=== PATIENT | male | born 1985 | race Caucasian/White ===

== ENCOUNTER 2016-10-27 17:47 | Inpatient (IN) | payer OTHER ==
[~2016-10-27] VITALS: Ht 180.3 cm; Wt 113.4 kg
[~2016-10-27 17:47] MED LIST: ABILIFY10 M1 PO; ABILIFY20 M1 PO; AMBIEN (MONOGRAP5 MG PO; ATIVAN0.5 M1 PO; ATIVAN0.5 MG PO; ATIVAN1 MG PO; BENTYL20 MG PO; BUPROPION HYDR150 M1 PO; CARDIZEM 30 MG30 MG PO; CLONAZEPAM1 M2 PO; CLONAZEPAM1 MG PO; CLONIDINE HCL0.1 MG PO; CYCLOBENZAPRINE10 MG PO; ESCITALOPRAM OX20 MG PO; ESCITALOPRAM20 MG PO; FLOVENT HF0.044 MG/A INH; FOLIC ACID 1 MG PO; FOLIC ACID1 M1 PO; GABAPENTIN TAB600 MG PO; GABAPENTIN300 M2 PO; HYDRODIURIL 2525 MG PO; IBU-200200 MG PO; IBUPROFEN800 MG PO; LEVAQUIN500 MG PO; LEVSIN/SL0.125 MG SL; LEXAPRO 10MG10 MG PO; LEXAPRO10 M1 PO; LEXAPRO5 MG PO; LOMOTIL 0.025 M1 TAB PO; MOTRIN 400 MG400 MG PO; MULTIPLE VITAMI1 TA9 PO; MULTIVITAMIN1 TAB PO; NEURONTIN300 MG PO; NICOTINE PO; NORVASC 5MG TAB5 MG PO; ONE DAILY MULT1 EAC2 PO; OXYCODONE5 M1 PO; PEPCID20 MG PO; PERCOCET 325 MG1 TA2 PO; PRAZOSIN HCL1 M1 PO; PREDNISONE20 M1 PO; PRILOSEC 20MG C20 MG PO; PRILOSEC OTC20 MG PO; PROAIR HFA0.09 MG/Ac IN; PROAIR HFA0.09 MG/Ac INH; PROAIR HFA0.09 MG/Ac INH/SOL; PROPRANOLOL HCL10 M1 PO; PROTONIX 40MG T40 MG PO; ROXICODONE5 MG PO; ROZEREM8 MG PO; SEROQUEL (MONO200 MG PO; SPIRIVA 18 MCG18 MCG INH; SYMBICORT 160/41 PUF INH; TRAMADOL50 MG PO; TRAZODONE HCL50 M1 PO; TYLENOL500 MG PO; Theragran Vitamins PO; VITAMIN B-1100 MG PO; VITAMIN B1100 MG PO; ZOFRAN ODT4 MG PO; ZOFRAN ODT4 MG SL; ZOFRAN4 M1 SL; ZOLPIDEM TARTRAT5 MG PO
[2016-10-27] MEDS ORDERED: TRAZODONE HCL50 M1 PO (17:50)
[2016-10-27 18:16] LABS: ABSOLUTE BASOPHIL COUNT 0.1 /CUMM (0.0-0.2); ABSOLUTE EOSINOPHIL COUNT 0.1 /CUMM (0.0-0.7); ABSOLUTE GRANULOCYTE CT 6.9 /CUMM (1.4-6.5); ABSOLUTE LYMPH COUNT 3.7 /CUMM (1.2-3.4); ABSOLUTE MONOCYTE COUNT 0.9 /CUMM (0.10-0.60); BASOPHIL % 0.6 % (0.0-2.0); EOSINOPHIL % 1.1 % (0-5); MEAN CORPUSCULAR HGB 28.9 PG (27.0-31.0); MEAN CORPUSCULAR HGB CONC 33.6 G/DL (33.0-37.0); PLATELET COUNT 309 /CUMM (130-400); RBC DISTRIBUTION WIDTH 15.5 % (11.5-14.5); RED BLOOD CELL CT 5.35 /CUMM (4.70-6.10)
[2016-10-27 18:17] LABS: WHITE BLOOD CELL COUNT 11.6 /CUMM (4.8-10.8)
[2016-10-27 18:18] LABS: GRANULOCYTE % 59.2 % (42.2-75.2)
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
[2016-10-27 19:14] VITALS: BP 150/80
--- NOTE | 2016-10-27 20:20 | CT SCAN REPORT ---
EXAMINATION: CT HEAD WITHOUT CONTRAST CLINICAL INFORMATION: Head pain. COMPARISON: CT head 10/20/2016. TECHNIQUE: Contiguous axial imaging was performed from the skull base to vertex without intravenous administration of contrast. DLP: 954.92 mGy-cm. FINDINGS: There is no evidence of acute intracranial hemorrhage or territorial infarction. No abnormal mass effect or midline shift is seen. [place] to white matter differentiation is well preserved. No extra-axial fluid collections are identified. The ventricles are normal in size. There is no abnormal attenuation within the brain parenchyma. The osseous structures and soft tissues are normal. The mastoid air cells and visualized portions of the paranasal sinuses are well aerated. IMPRESSION: No acute intracranial pathology.
--- NOTE | 2016-10-27 20:23 | CT SCAN REPORT ---
EXAMINATION: CT CERVICAL SPINE WITHOUT CONTRAST CLINICAL INFORMATION: Fall. Injury. COMPARISON: None. TECHNIQUE: Axial images obtained through cervical spine. Coronal and sagittal reformatted images performed at the CT scanner DLP: 954.92 mGy-cm. FINDINGS: No fracture. No subluxation. No prevertebral soft tissue swelling. Cervical disc height normal. Facet joints are normal. SPINAL LEVELS: C2-C3: Normal. C3-C4: Normal. C4-C5: Normal. C5-C6: Normal. C6-C7: Normal. C7-T1: Normal. IMPRESSION: Unremarkable examination.
--- NOTE | 2016-10-27 20:33 | CT SCAN REPORT ---
EXAMINATION: CT ABDOMEN AND PELVIS WITH CONTRAST CLINICAL INFORMATION: Left upper quadrant pain. Concern for pancreatitis. COMPARISON: Abdominal CT 05/27/2016. TECHNIQUE: Multidetector volumetric imaging was performed of the abdomen and pelvis before and after the IV administration of 94 mL of Optiray 320 intravenous contrast. Sagittal and coronal reformatted images were obtained on the technologist's workstation. FINDINGS: The lung bases are clear. Punctate nodules within the left lower lobe laterally and within the right lower lobe laterally remain stable. The liver, spleen, gallbladder, and pancreas are normal. Stable appearing 1.3 cm left adrenal lesion when compared to multiple prior studies with previous noncontrast imaging demonstrating a myelolipoma. The kidneys exhibit symmetric nephrograms without evidence of hydronephrosis or nephrolithiasis. No focal renal lesions. The large and small bowel are normal in caliber without evidence of mechanical obstruction. No focal inflammatory changes adjacent to the large or the small bowel. The appendix is normal. There is no free air and there is no intra-abdominal free fluid. No mesenteric or retroperitoneal adenopathy. The pelvic viscera are normal. No pelvic adenopathy. No free fluid within the pelvis. There are no acute osseous abnormalities. There is an old healed fracture of the left inferior pubic ramus. No significant soft tissue abnormality. IMPRESSION: No acute findings. No CT evidence of acute pancreatitis.
[2016-10-27 21:22] VITALS: BP 124/60
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
[2016-10-27 23:40] VITALS: BP 143/90
[2016-10-28] VITALS (8 sets, daily range): BP systolic 130–143; BP diastolic 70–94
--- NOTE | 2016-10-28 06:32 | PN- Housestaff ---
RADHA العلي,THERESA 10/28/16 0627: Subjective Follow-up For: ETOH dependence Subjective: Patient is lying down in bed comfortably. Last CIWA score was 14 (patient scored for N/V and headache). Review of Systems Constitutional: Reports: see HPI. Objective Last 24 Hrs of Vital Signs/I&O Vital Signs Date Time Temp Pulse Resp B/P Pulse O2 O2 Flow FiO2 Ox Delivery Rate 10/27 2340 97.4 81 18 143/90 98 Room Air 10/27 2122 78 18 124/60 10/27 2028 78 18 124/60 96 Room Air 10/27 1914 96.9 83 16 150/80 10/27 1801 98.9 83 18 152/80 99 Room Air 10/27 1800 99 Room Air 10/27 1752 152/80 Intake & Output 10/28 0800 10/28 0000 10/27 1600 Intake Total 1000 Output Total Balance 1000 Intake, IV 1000 Patient 250 lb Weight Physical Exam General Appearance: Alert, Oriented X3, Cooperative Cardiovascular: Regular Rate, Normal S1, Normal S2, No Murmurs Lungs: Clear to Auscultation, Normal Air Movement Abdomen: Normal Bowel Sounds, Soft, Mild tenderness in the epigastric region Neurological: Normal Speech, Normal Tone, Sensation Intact Extremities: No Edema Current Medications: Current Medications Sig/Heather Start time Last Medication Dose Route Stop Time Status Admin Acetaminophen 650 MG Q6P PRN 10/28 0600 UNVr PO Acetaminophen 650 MG Q4P PRN 10/28 0200 AC PO Aripiprazole 20 MG DAILY 10/28 1000 AC PO Cyanocobalamin/ 1 BAG DAILY 10/28 1000 AC Thiamine/Pyridoxine IV 10/30 1759 Sodium Chloride 1,000 ML Enoxaparin Sodium 40 MG DAILY 10/28 1000 AC SC Escitalopram Oxalate 20 MG DAILY 10/28 1000 AC PO Folic Acid 0 .STK-MED ONE 10/27 1823 DC PO Folic Acid 1 MG DAILY 10/27 1806 DC 10/27 PO 10/29 1001 1825 Gabapentin 600 MG TID 10/28 1000 AC PO Ketorolac 30 MG ONCE ONE 10/27 1845 DC 10/27 Tromethamine IV 10/27 1846 1848 Ketorolac 0 .STK-MED ONE 10/27 1836 DC Tromethamine .ROUTE Lorazepam 0.5 MG ONCE 11/01 0000 DC PO 11/01 0001 Lorazepam 0.5 MG ONCE ONE 10/30 1800 DC PO 10/30 1801 Lorazepam 1 MG Q6H 10/30 0000 DC PO 10/30 1201 Lorazepam 1.5 MG Q12H 10/29 0600 DC PO 10/29 1801 Lorazepam 1 MG Q12H 10/29 0000 CAN PO 10/29 1201 Lorazepam 1.5 MG Q6 10/28 0600 CAN PO 10/28 1801 Lorazepam 2 MG Q6 10/28 0600 AC PO Lorazepam 2 MG Q6 10/27 2359 CAN IV Lorazepam 0 Q1P PRN 10/27 2245 AC IV Lorazepam 0 .STK-MED ONE 10/27 2126 DC PO Lorazepam 0 .STK-MED ONE 10/27 1921 DC PO Lorazepam 0 .STK-MED ONE 10/27 1823 DC PO Lorazepam 2 MG ONCE ONE 10/27 1815 DC 10/27 PO 10/27 1816 1825 Lorazepam 2 MG Q2P PRN 10/27 1815 DC 10/27 PO 2127 Lorazepam 1 MG Q2P PRN 10/27 1815 DC PO Lorazepam 2 MG Q6 10/27 1806 DC 10/28 PO 10/28 0001 0059 Multivitamins 0 .STK-MED ONE 10/27 1823 DC PO Multivitamins 1 TAB DAILY 10/27 1806 DC 10/27 PO 1825 Nicotine 14 MG DAILY 10/28 1000 AC TOP Omeprazole 40 MG ONCE ONE 10/28 0115 DC 10/28 PO 10/28 0116 0115 Ondansetron HCl 4 MG Q8P PRN 10/27 2245 DC IV Ondansetron HCl 4 MG ONCE ONE 10/27 1845 DC 10/27 IV 10/27 1846 1849 Ondansetron HCl 0 .STK-MED ONE 10/27 1836 DC .ROUTE Pantoprazole Sodium 40 MG DAILY 10/28 1000 AC IV Prazosin HCl 1 MG QPM 10/28 2200 AC PO Propranolol HCl 10 MG BID 10/28 1000 AC PO Sodium Chloride 1,000 ML BOLUS ONE 10/27 1845 DC 10/27 IV 10/27 2044 1848 Thiamine HCl 0 .STK-MED ONE 10/27 1823 DC PO Thiamine HCl 100 MG DAILY 10/27 1806 DC 10/27 PO 10/29 1001 1825 Last 24 Hrs of Lab/Brian Results Last 24 Hrs of Labs/Mics: Laboratory Tests 10/27/161941: Urine Opiates Screen < 100.00, Methadone Screen 41, Barbiturate Screen < 60, Ur Phencyclidine Scrn < 6.00, Amphetamines Screen 123, U Benzodiazepines Scrn 473 H, Urine Cocaine Screen > 1000 H, Urine Cannabis Screen 39.10, Urine Color YEL, Urine Clarity CLEAR, Urine pH 6.5, Ur Specific [place] 1.025, Urine Protein TRACE H, Urine Ketones NEG, Urine Nitrite NEG, Urine Bilirubin NEG, Urine Urobilinogen 0.2, Ur Leukocyte Esterase NEG, Ur Microscopic SEDIMENT EXAMINED, Urine RBC RARE, Urine WBC RARE, Ur Epithelial Cells RARE, Urine Hemoglobin NEG, Urine Glucose NEG 10/27/161808: Anion Gap 12, Estimated GFR > 60, BUN/Creatinine Ratio 15.0, Glucose 90, Calcium 9.6, Total Bilirubin 0.6, Direct Bilirubin 0.5 H, AST 27, ALT 38, Alkaline Phosphatase 119, Troponin I < 0.01, Total Protein 7.7, Albumin 4.5, Globulin 3.2 , Albumin/Globulin Ratio 1.4, Amylase 33, Lipase 26, Prolactin 10.3, CBC w Diff NO MAN DIFF REQ, RBC 5.35, MCV 86.0, MCH 28.9, RDW 15.5 H, MPV 7.0 L, Gran % 59.2, Lymphocytes % 31.8, Monocytes % 7.3, Eosinophils % 1.1, Basophils % 0.6, Absolute Granulocytes 6.9 H, Absolute Lymphocytes 3.7 H, Absolute Monocytes 0.9 H, Absolute Eosinophils 0.1, Absolute Basophils 0.1, PUBS MCHC 33.6, Serum Alcohol < 10.0 Lines/Diet/Fluids Lines: peripheral lines Assessment/Plan Assessment: 31-year-old male with a past medical history of polysubstance abuse (cocaine, heroin, alcohol), hypertension, mood disorder presented to the ED after a possible alcohol withdrawal seizure. He recently left [facility] from [facility] on 10/23 after admission for alcohol withdrawal. According to the patient and back home and started drinking more than usual (half gallon vodka). He was also using heroin, cocaine, marijuana. This morning he was sitting watching TV when all of a sudden he found himself on the floor unaware of what happened. He does have a history of alcohol withdrawal seizures. Problem list; * History of EtOH dependence with withdrawal seizures. * Polysubstance abuse (cocaine, heroin, marijuana) * Mood disorders * Hypertension Plan: * Continue Ativan 2 mg by mouth every 6 and Ativan every when necessary IV perceivable protocol, as the CIWA scores continue tp be elevated. * Banana bag 3 L, running, as patient has not been eating anything by mouth for 72 hours. * Continue other home medications. Trazodone has been held in view of current Ativan * Psych consult, social work consult * DVT prophylaxis: Subcutaneous Lovenox * Pain pathway: Tylenol when necessary * CODE STATUS: Full code Problem List: 1. Alcohol withdrawal Pain Ratin Pain Location: None Pain Goal: Pain 4 or less Pain Plan: Per EMR Tomorrow's Labs & Rationales: BEP and Mag DVT/Prophylaxis: pharmacological VANESSA العلي,ROBERT 10/28/16 1143: Attending MD Review Statement Attending Statement Attending MD Statement: examined this patient, discuss w/resident/PA/PEDIATRIC ASSISTANT, agreed w/resident/PA/PEDIATRIC ASSISTANT, reviewed EMR data (avail), discussed with nursing, discussed with case mgmt, amended to note Attending Assessment/Plan: Patient seen and examined. Resting comfortably not in any acute distress. He reports that his and out of the hospital AGAINST MEDICAL ADVICE to be home for the holidays. He returned to drinking alcohol and developed a seizure yesterday. Reports that he is willing to go through the management to alcohol withdrawal here in the hospital and is also willing to follow-up with an outpatient program. His CIWA was as high as 20 yesterday. So for has not required any dose of when necessary IV Ativan. Continue him on his current dose of 2 mg orally every 6 hours for now and will reevaluate tomorrow.
--- NOTE | 2016-10-28 07:27 | Admission Certification ---
Admission Certification Certification Statement - As attending physician, I certify that at the time of - admission, based on clinical presentation, severity of - symptoms, need for further diagnostic testing and - therapeutic interventions, and risk of adverse outcomes - without in-hospital treatment, in my clinical assessment, - this patient requires an acute hospital stay for a minimum - of two nights or longer. I have also considered psychsocial - factors such as support system, advanced age, financial - issues, cognitive issues, and failed out-patient treatments, - past re-admission history, safety of patient, and lack of - compliance as applicable. Specific rationale supporting this admission is: Alcohol withdrawal and seizures
[2016-10-28 08:50] LABS: ABSOLUTE BASOPHIL COUNT 0.1 /CUMM (0.0-0.2); ABSOLUTE EOSINOPHIL COUNT 0.2 /CUMM (0.0-0.7); ABSOLUTE GRANULOCYTE CT 3.4 /CUMM (1.4-6.5); ABSOLUTE LYMPH COUNT 2.7 /CUMM (1.2-3.4); ABSOLUTE MONOCYTE COUNT 0.6 /CUMM (0.10-0.60); BASOPHIL % 0.8 % (0.0-2.0); EOSINOPHIL % 3.2 % (0-5); MEAN CORPUSCULAR HGB 28.7 PG (27.0-31.0); MEAN CORPUSCULAR HGB CONC 33.5 G/DL (33.0-37.0); MEAN CORPUSCULAR VOLUME 85.7 FL (80.0-94.0); MEAN PLATELET VOLUME 7.5 FL (7.4-10.4); PLATELET COUNT 253 /CUMM (130-400); RBC DISTRIBUTION WIDTH 15.7 % (11.5-14.5); RED BLOOD CELL CT 5.01 /CUMM (4.70-6.10)
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
[2016-10-29] VITALS (7 sets, daily range): BP systolic 116–151; BP diastolic 51–96
--- NOTE | 2016-10-29 08:41 | PN- Housestaff ---
CHARLEY العلي,[facility] 10/29/16 0841: Subjective Follow-up For: ETOH dependence Subjective: patient seen and examined. His CIWA has been 2,0,0,0. afebrile, otherwise no complains. Review of Systems Constitutional: Reports: see HPI. Objective Last 24 Hrs of Vital Signs/I&O Vital Signs Date Time Temp Pulse Resp B/P Pulse O2 O2 Flow FiO2 Ox Delivery Rate 10/29 1006 68 116/66 10/29 0841 97.5 68 20 116/66 97 Room Air 10/29 0600 97.8 90 18 141/76 10/29 0400 97.8 90 18 141/76 10/29 0200 97.6 90 18 141/76 10/29 0000 97.8 90 18 141/76 10/28 2340 97.8 90 18 141/76 97 Room Air 10/28 2200 97.6 82 18 140/78 10/28 2138 97.6 82 18 140/78 10/28 2135 97.6 82 18 140/78 10/28 2135 97.6 82 18 140/78 10/28 2000 98.1 93 18 134/70 10/28 1713 93.0 93 20 134/70 96 Room Air Intake & Output 10/29 1600 10/29 0800 10/29 0000 Intake Total 120 390 Output Total 800 Balance 120 -410 Intake, IV 150 Intake, Oral 120 240 Output, Urine 800 Physical Exam General Appearance: Alert, Oriented X3, Cooperative Cardiovascular: Regular Rate, Normal S1, Normal S2, No Murmurs Lungs: Clear to Auscultation, Normal Air Movement Abdomen: Normal Bowel Sounds, Soft, No Tenderness Extremities: No Clubbing, No Cyanosis, No Edema Current Medications: Current Medications Sig/Heather Start time Last Medication Dose Route Stop Time Status Admin Acetaminophen 650 MG Q6P PRN 10/28 600 AC PO Aripiprazole 20 MG DAILY 10/28 1000 AC 10/29 PO 1006 Cyanocobalamin/ 1 BAG DAILY 10/28 1000 AC 10/29 Thiamine/Pyridoxine IV 10/30 1759 1149 Sodium Chloride 1,000 ML Enoxaparin Sodium 40 MG DAILY 10/28 1000 AC 10/29 SC 1004 Escitalopram Oxalate 20 MG DAILY 10/28 1000 AC 10/29 PO 1006 Gabapentin 600 MG TID 10/28 1000 AC 10/29 PO 1006 Hydromorphone HCl 2 MG ONCE ONE 10/28 1730 DC 10/28 PO 10/28 1731 1731 Lorazepam 0.5 MG ONCE 11/01 0000 DC PO 11/01 0001 Lorazepam 0.5 MG ONCE ONE 10/30 1800 DC PO 10/30 1801 Lorazepam 1 MG Q6H 10/30 0000 DC PO 10/30 1201 Lorazepam 1.5 MG Q6 10/29 1800 UNVr PO Lorazepam 1.5 MG Q12H 10/29 0600 DC PO 10/29 1801 Lorazepam 2 MG Q6 10/28 0600 DC 10/29 PO 1149 Lorazepam 0 Q1P PRN 10/27 2245 AC 10/28 IV 2140 Nicotine 14 MG DAILY 10/28 1000 AC 10/29 TOP 1004 Pantoprazole Sodium 40 MG DAILY 10/28 1000 AC 10/29 IV 1004 Prazosin HCl 1 MG QPM 10/28 2200 AC 10/28 PO 2135 Propranolol HCl 10 MG BID 10/28 1000 AC 10/29 PO 1006 Assessment/Plan Assessment: 31-year-old male with a past medical history of polysubstance abuse (cocaine, heroin, alcohol), hypertension, mood disorder presented to the ED after a possible alcohol withdrawal seizure. He recently left [place] from [facility] on 10/23 after admission for alcohol withdrawal. According to the patient and back home and started drinking more than usual (half gallon vodka). He was also using heroin, cocaine, marijuana. This morning he was sitting watching TV when all of a sudden he found himself on the floor unaware of what happened. He does have a history of alcohol withdrawal seizures. Problem list; * History of EtOH dependence with withdrawal seizures. * Polysubstance abuse (cocaine, heroin, marijuana) * Mood disorders * Hypertension Plan: * Continue Ativan 1.5 mg by mouth every 6 and Ativan every when necessary IV perceivable protocol, as the CIWA scores continue tp be elevated. * Banana bag 3 L, running, as patient has not been eating anything by mouth for 72 hours. * Continue other home medications. Trazodone has been held in view of current Ativan * Psych consult, social work consult * DVT prophylaxis: Subcutaneous Lovenox * Pain pathway: Tylenol when necessary * CODE STATUS: Full code Problem List: 1. Alcohol withdrawal seizure 2. Alcohol intoxication Pain Ratin Pain Location: none Pain Goal: Remain pain free Pain Plan: Tylenol Tomorrow's Labs & Rationales: None ILYA MENDEZ MDBRITTANYCAT 10/29/16 1039: Attending MD Review Statement Attending Statement Attending MD Statement: examined this patient, discuss w/resident/PA/MEMS ENGINEER, agreed w/resident/PA/MEMS ENGINEER, reviewed EMR data (avail), discussed with nursing, discussed with case mgmt, amended to note Attending Assessment/Plan: Referral. Patient seen and examined. Resting comfortably and not in any acute distress. No issues overnight. No new complaints this morning. He is not agitated or tremulous. He is cooperative. He had a max CIWA of 11 last night however this has been improved today. He received only 1 mg of IV Ativan for the elevated score yesterday. His electrolyte levels have been within normal limits. Plan: -Psychiatric consult was placed yesterday in the emergency room with history of suicidal ideation. Patient currently denies any suicidal ideations or attempt. He has not required a sitter. He denies any current change in his mood. Chano Yoon MD was here to see him yesterday. In the absence of any active psychiatric complaint consult was canceled. -Taper Ativan to 1.5 mg orally every 6 hours today. -Continue his regimen for his anxiety disorder/depression. -janitorial maintenance worker consultation for outpatient alcohol rehabilitation
[2016-10-30 08:16] VITALS: BP 152/98
--- NOTE | 2016-10-30 08:23 | PN- Housestaff ---
Subjective Follow-up For: alcohol detox Subjective: pt's CIWA 2,3,3,14,16,10,9 overnight, receiverd 7mg PO ativan with 5.5 mg IV ativan over the past 24 hours. This morning, he insisted on leaving AMA because he wants to smoke. He will only stay if we provide him with "a lois bed, couple women, steak dinner, and knock me out with ativan and morphine". He is fully aware of the risk of signing out AMA including alcohol withdrawal seizures and . Review of Systems Constitutional: Reports: see HPI. Denies: chills, fever. EENTM: Denies: visual changes. Cardiovascular: Denies: chest pain, orthopena, palpitations. Respiratory: Denies: cough, short of breath, sputum production. Gastrointestinal: Reports: abdominal pain. Denies: bloating, constipation, diarrhea. Objective Last 24 Hrs of Vital Signs/I&O Vital Signs Date Time Temp Pulse Resp B/P Pulse O2 O2 Flow FiO2 Ox Delivery Rate 10/30 0816 97.4 66 20 152/98 97 10/29 2355 98.0 70 20 151/77 95 Room Air 10/29 2322 70 151/97 10/29 2322 70 151/97 10/29 1556 98.3 81 19 138/96 96 Intake & Output 10/30 1600 10/30 0800 10/30 0000 Intake Total 600 850 Output Total 1350 400 Balance -750 450 Intake, IV 250 Intake, Oral 600 600 Output, Urine 1350 400 Physical Exam General Appearance: Alert, Oriented X3, Cooperative, No Acute Distress Skin: No Significant Lesion HEENT: Atraumatic, PERRLA Cardiovascular: Regular Rate, Normal S1, Normal S2, No Murmurs, Gallops, Rubs Lungs: Clear to Auscultation, Normal Air Movement Abdomen: Normal Bowel Sounds, Soft, No Tenderness Neurological: Normal Speech Extremities: generalized tremor Current Medications: Current Medications Sig/Heather Start time Last Medication Dose Route Stop Time Status Admin Acetaminophen 650 MG .STK-MED ONE 10/29 1522 DC PO 10/29 1523 Acetaminophen 650 MG Q6P PRN 10/28 0600 DCD 10/29 PO 1532 Aripiprazole 20 MG DAILY 10/28 1000 DCD 10/30 PO 0801 Cyanocobalamin/ 1 BAG DAILY 10/28 1000 DCD 10/29 Thiamine/Pyridoxine IV 10/30 1759 1149 Sodium Chloride 1,000 ML Enoxaparin Sodium 40 MG DAILY 10/28 1000 DCD 10/30 SC 0801 Escitalopram Oxalate 20 MG DAILY 10/28 1000 DCD 10/30 PO 0800 Gabapentin 600 MG TID 10/28 1000 DCD 10/30 PO 0800 Hydromorphone HCl 2 MG ONCE ONE 10/29 1545 DC 10/29 PO 10/29 1546 1542 Lorazepam 0.5 MG ONCE 11/01 0000 DC PO 11/01 0001 Lorazepam 0.5 MG ONCE ONE 10/30 1800 DC PO 10/30 1801 Lorazepam 1 MG Q6H 10/30 0000 DC PO 10/30 1201 Lorazepam 1.5 MG Q6 10/29 1800 DCD 10/30 PO 0507 Lorazepam 2 MG Q6 10/28 0600 DC 10/29 PO 1149 Lorazepam 0 Q1P PRN 10/27 2245 DCD 10/30 IV 0800 Nicotine 14 MG DAILY 10/28 1000 DCD 10/30 TOP 0801 Ondansetron HCl 4 MG Q6P PRN 10/29 1545 CAN IV Ondansetron HCl 4 MG Q8P PRN 10/29 1545 DCD 10/29 IV 1542 Pantoprazole Sodium 40 MG DAILY 10/28 1000 DCD 10/30 IV 0800 Prazosin HCl 1 MG QPM 10/28 2200 DCD 10/29 PO 2322 Propranolol HCl 10 MG BID 10/28 1000 DCD 10/30 PO 0801 Assessment/Plan Assessment: 31-year-old male with a past medical history of polysubstance abuse (cocaine, heroin, alcohol), hypertension, mood disorder presented to the ED after a possible alcohol withdrawal seizure. He recently left AMA from [facility] on 10/23 after admission for alcohol withdrawal. According to the patient and back home and started drinking more than usual (half gallon vodka). He was also using heroin, cocaine, marijuana. This morning he was sitting watching TV when all of a sudden he found himself on the floor unaware of what happened. He does have a history of alcohol withdrawal seizures. Problem list; * History of EtOH dependence with withdrawal seizures. * Polysubstance abuse (cocaine, heroin, marijuana) * Mood disorders * Hypertension Plan: * Pt signed out AMA, did not discharge him on ativan * Banana bag 3 L * Continue other home medications. Trazodone has been held in view of current Ativan * Psych consult, social work consult * DVT prophylaxis: Subcutaneous Lovenox * Pain pathway: Tylenol when necessary * CODE STATUS: Full code Problem List: 1. EtOH dependence Pain Ratin Pain Location: ruq abd pain Pain Goal: Pain 4 or less Pain Plan: mild pp Tomorrow's Labs & Rationales: none DVT/Prophylaxis: mechanical, pharmacological
--- NOTE | 2016-10-30 09:21 | Patient Discharge Instructions ---
Discharge Instructions General Discharge Information You were seen/treated for: Alcohol withdrawal Special Instructions: You are signing out against medical advice and you have acknowledged that you are aware that your condition can be harmful if left untreated. Severe complications include seizures and even . Diet Continue normal diet: Yes Activity Full Activity/No Limits: Yes Acute Coronary Syndrome Inclusion Criteria At DC or during hospital stay patient has or had the following: ACS DIAGNOSIS No Discharge Core Measures Meds if any: Prescribed or Continued at Discharge Meds if any: NOT Prescribed or Continued at Discharge Congestive Heart Failure Inclusion Criteria At DC or during hospital stay patient has or had the following: CHF DIAGNOSIS No Discharge Core Measures Meds if any: Prescribed or Continued at Discharge Meds if any: NOT Prescribed or Continued at Discharge Cerebrovascular accident Inclusion Criteria At DC or during hospital stay patient has or had the following: CVA/TIA Diagnosis No Discharge Core Measures Meds if any: Prescribed or Continued at Discharge Meds if any: NOT Prescribed or Continued at Discharge Venous thromboembolism Inclusion Criteria VTE Diagnosis No VTE Type NONE VTE Confirmed by (Test) NONE Discharge Core Measures - Per Current guidelines, there needs to be overlap - treatment for the first 5 days of Warfarin therapy. - If discharged on Warfarin prior to 5 days of - overlap therapy, the patient will need to be - assessed for post discharge needs including - *Post discharge parental anticoagulation - *Warfarin and/or parental anticoagulation education - *Follow up date to check INR post discharge At least 5 days overlap therapy as Inpatient No Meds if any: Prescribed or Continued at Discharge Note: Overlap Therapy is Warfarin and Anticoagulant Meds if any: NOT Prescribed or Continued at Discharge
--- NOTE | 2016-10-30 10:44 | PN- Att Addend ---
Attending Addendum Attending Brief Note Overnight patient had elevated CIWA scores as high as 14. He required a total of 4 mg of Ativan IV for breakthrough. This morning he just up and insisting on leaving the hospital AGAINST MEDICAL ADVICE. His sister his feeling much better and is ready to go home. I did extend to him that he is still going through the withdrawal phase. I did exchange in the very high likelihood of him experiencing withdrawal seizures. I've explained to him that he still requiring intravenous doses of Ativan and that sending him home on oral benzodiazepine would not be appropriate at this time. He however he insists on leaving the hospital immediately. I did extremity making the risk of developing worsening withdrawal symptoms, seizures and possibly . He verbalized understanding and remains adamant on leaving. Patient was alert and oriented 3. Ambulating freely around the unit. He declined to allow me to examine him. He speech was intact. He was not tremulous. He demonstrated clear understanding. He left the hospital after signing out AGAINST MEDICAL ADVICE.
--- NOTE | 2016-11-08 17:05 | Discharge Summary ---
Visit Information Visit Dates Admission Date: 10/27/16 Discharge Date: 10/30/16 Hospital Course Course Attending Physician: ROBERT MENDEZ M.D Primary Care Physician: NELSY WATTERS Hospital Course: 31-year-old male with a past medical history of polysubstance abuse (cocaine, heroin, alcohol), hypertension, mood disorder presented to the ED after a possible alcohol withdrawal seizure. He recently left AMA from [facility] on 10/23 after admission for alcohol withdrawal. According to the patient and back home and started drinking more than usual (half gallon vodka). He was also using heroin, cocaine, marijuana. He was again admitted for alcohol detox and eventually left AMA. He was not prescribed ativan to go home with. Allergies: Coded Allergies: NO KNOWN ALLERGIES (08/28/16) Disposition Summary Disposition Principal Diagnosis: Alcohol detox Additional Diagnosis: Polysubstance abuse Discharge Disposition: left against medical adv Discharge Instructions General Discharge Information Code Status: Full Code Patient's Diet: Regular Patient's Activity: As tolerated Follow-Up Instructions/Appts: Special Instructions: You are signing out against medical advice and you have acknowledged that you are aware that your condition can be harmful if left untreated. Severe complications include seizures and even . Medications at Discharge Discharge Medications: Continue taking these medications: Gabapentin (Gabapentin) 300 MG CAPSULE 2 Capsule ORAL THREE TIMES DAILY Qty = 56 Comments: PER PT Escitalopram Oxalate (Escitalopram Oxalate) 20 MG TABLET 1 Tablet ORAL DAILY Qty = 30 Aripiprazole (Abilify) 20 MG TABLET 1 Tablet ORAL Every Morning Qty = 30 Propranolol HCl (Propranolol HCl) 10 MG TABLET 1 Tablet ORAL TWICE DAILY Qty = 60 Comments: PER PT Prazosin HCl (Prazosin HCl) 1 MG CAPSULE 1 Capsule ORAL Every night Comments: PER PT Trazodone HCl (Trazodone HCl) 50 MG TABLET 1 Tablet ORAL Every night as needed for SLEEP Qty = 30 Comments: PER PT Copies To: NELSY WATTERS Attending MD Review Statement Documenting Attending: ROBERT MENDEZ M.D Other Findings: I have reviewed the discharge summary.
== END 2016-10-30 09:50 | disposition left against medical advice (07) | DRG 770 ==
LOC: ERH 17:47 → 2NB 21:48 → ERHI 21:48 → 2NB 21:54
PROVIDERS: Internal Medicine; Physician Assistant; ADMIT Internal Medicine
DX: F10.239 Alcohol dependence with withdrawal, unspecified (principal); Y90.0 Blood alcohol level of less than 20 mg/100 ml; I10 Essential (primary) hypertension; F41.8 Other specified anxiety disorders; F17.210 Nicotine dependence, cigarettes, uncomplicated; K29.20 Alcoholic gastritis without bleeding; F14.10 Cocaine abuse, uncomplicated
CPT/HCPCS: 2NBP; 36415; 74177; 81001; 82436; 93005; 93010; G0479; G0480; J0401; J1650; J1885; J2405; J3490

== ENCOUNTER 2017-01-13 12:49 | Inpatient (IN) | payer OTHER ==
[~2017-01-13] VITALS: Ht 180.3 cm; Wt 122.5 kg
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
--- NOTE | 2017-01-13 13:16 | NUR ---
URINE SPEC X3 SENT TO LAB.
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
--- NOTE | 2017-01-13 13:34 | NUR ---
PT MEDICATED WITH ATIVAN, BENADRYL, AND HALDOL PER EMAR.
[2017-01-13 14:16] LABS: ABSOLUTE BASOPHIL COUNT 0.1 /CUMM (0.0-0.2); ABSOLUTE EOSINOPHIL COUNT 0.1 /CUMM (0.0-0.7); ABSOLUTE GRANULOCYTE CT 4.7 /CUMM (1.4-6.5); ABSOLUTE LYMPH COUNT 2.4 /CUMM (1.2-3.4); ABSOLUTE MONOCYTE COUNT 0.7 /CUMM (0.10-0.60); BASOPHIL % 1.1 % (0.0-2.0); EOSINOPHIL % 1.1 % (0-5); GRANULOCYTE % 59.7 % (42.2-75.2); MEAN PLATELET VOLUME 7.1 FL (7.4-10.4); PLATELET COUNT 279 /CUMM (130-400)
[2017-01-13 14:17] LABS: HEMATOCRIT 47.4 % (42-52); MEAN CORPUSCULAR HGB 28.9 PG (27.0-31.0); MEAN CORPUSCULAR HGB CONC 33.3 G/DL (33.0-37.0); MEAN CORPUSCULAR VOLUME 86.9 FL (80.0-94.0); RED BLOOD CELL CT 5.46 /CUMM (4.70-6.10); WHITE BLOOD CELL COUNT 7.9 /CUMM (4.8-10.8)
--- NOTE | 2017-01-13 17:08 | NUR ---
Crisis checked in to see if patient was awake. Sitter informed crisis that pt has been sleeping for a while and he was not able to wake him for his food tray. Crisis will attempt to evaluate later in shift.
--- NOTE | 2017-01-13 19:22 | NUR ---
Crisis checked in on patient. Patient sleeping facing wall, wrapped up in blanket. Dinner tray in room not touched. Sitter reported he hasn't woken up yet. Will continue to wait to evaluate patient.
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
--- NOTE | 2017-01-13 21:15 | ED PSY CRISIS COLLATERAL NOTE ---
Collateral Note Collateral Note Family/Inform/Dagoberto Contacts: Crisis attempted to contact [email or web address] . Left message asking for call back to the crisis dept in ED.
--- NOTE | 2017-01-13 22:05 | NUR ---
PER [facility] PT WILL BE ADMIT TO CPS.
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
--- NOTE | 2017-01-13 22:43 | NUR ---
REPORT GIVEN TO HOLLI REID. [employer] CALLED FOR PT TRANSPORT. SECURITY CALLED FOR ESCORT.
[2017-01-14] VITALS (11 sets, daily range): BP systolic 111–152; BP diastolic 54–85
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
--- NOTE | 2017-01-14 05:59 | NUR ---
PT ARRIVED ON THE UNIT AT 2300. AFTER INTERVIEW, PT APPEARED TO SLEEP. PT DENIES SI, AGREES TO BE SAFE ON THE UNIT.
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
--- NOTE | 2017-01-14 13:15 | NUR ---
HAS BEEN ISOLATIVE IN ROOM. RESPONDS QUICKLY WHEN CALLED, OFFERS NO COMPLAINTS. MOOD IS STABLE, FLAT AFFECT. DENIED THOUGHTS OF SELF HARM WHEN ASKED.
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
--- NOTE | 2017-01-14 21:00 | IP INCIDENTAL NOTE PSYCH ---
Incidental Note Notation: Pt. started showing withdrawal signs in the afternoon, at around 8:30 pm, he vomitted soon after taking Ativan PRN. Plan: 2 mg Ativan x once and again at bedtime Zofran PRN added Will discontinue Wellbutrin-XL (he has asked for it this AM because he was on it prior to hospitalization)
--- NOTE | 2017-01-14 23:26 | NUR ---
PT WAS NAUSEOUS WITH UPPER ABDOMINAL PAIN. PT VOMITED SEVERAL TIMES. VITAL SIGNS WERE TAKEN AND WNL. AMYLASE AND LIPASE DONE AND WNL. PT WAS GIVEN ZOFRAN AT 2029 WITH EFFECT. HE WAS GIVEN 2MG AT AND 2049 WITH GOOD EFFECT.
--- NOTE | 2017-01-15 06:06 | NUR ---
PT APPEARED TO SLEEP WELL. NO VOMITING ON NIGHTS, LOW CIWAs, VITAL SIGNS STABLE.
[2017-01-15 08:01] VITALS: BP 148/81
[2017-01-15 08:05] VITALS: BP 148/81
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
[2017-01-15 12:21] VITALS: BP 124/71
--- NOTE | 2017-01-15 13:44 | NUR ---
PT IS COMPLIANT AND COOPERATIVE, MOOD IS STABLE WITH A FLAT AFFECT. PT DENIES SI AT THIS TIME, C/O HEADACHE. PT REPORTING SOME S/S OF DETOX- NAUSEA, HEADACHE, TACTILE DISRUPTIONS, ANXIETY. PT HAS BEEN ISOLATIVE AND WITHDRAWN IN BED; SLEEPING MOST OF DAY. PT PRESENT ON UNIT FOR MEALS AND VITALS. PT HAS MINIMAL INTERACTION WITH PEERS AND STAFF. PT HAS REFUSED GROUPS. VITALS ARE STABLE, APPETITE IS GOOD.
--- NOTE | 2017-01-15 14:08 | SOCIAL WORKER PROG NOTE PSYCH ---
Social Work Progress Note Progress Note Tino has been in his room all day sleeping other than coming out for a meal. He reports feeling very depressed and states "I'm at the end of my rope". He is feeling hopeless about his life, although denies SI today. He rates his depression at 10 (1-10, 10 being worst) and anxiety a 10. [facility]. He says he did 45 days, but then just got up and left to go drink. He reported that he didn't feel that rehab did anything for him. He does not want to return to another rehab. He has been drinking about a 6 pack of beer a night and using heroin and cocaine. He feels he is having some withdrawal symptoms today (shakiness, sensitivity to light). Housing remains an issue for him. He said he's been staying on the street and staying at his Mom's occasionally. It's difficult for him to stay at his Mom's for long periods as this is not permitted by her housing. Tino has court on 01/18 in [facility] for a DWI. He is nervous about court. He thought it was supposed to be dropped. He is interested in applying for housing. He says he can't do a fdc, because it brings back too many PTSD symptoms. He is interested in having his Brother Aurelio in for a family meeting. He signed a release for me to call him. He also signed a release for [facility]. He hasn't received services from them for 7-8 months so he is most likely closed with them , but I will check. Called and left a message with Aurelio inviting him in for a family meeting.
--- NOTE | 2017-01-15 14:08 | SOCIAL WORKER TX PLAN PSYCH ---
Treatment Plan - Please Document: - Evidence that there is ongoing collaboration between - the patient and the interdisciplinary team, - including the patient's active participation and - responsibility for engaging in the treatment regimen, - and that the treatment plan is individualized and - relevant to the patient's conditions. - Treatment plan should reflect documentation indicating - that all active therapeutic efforts are included. Strengths/Capabilities: Pt is agreeable to inpatient hospitalization Physical Limitations (Interventions): none identified DSM5/PS Stressors/Medical Prob Diagnosis' (DSM 5, Stressors, Medical): F33.2 Major Depressive Disorder, Severe, Recurrent F14.20 Cocaine Use Disorder, Moderate F10.20 Alcohol Use Disorder, Severe Z65.3 Problems related to other legal circumstances- DWI charge, court 01/18/17 Current GAF: 20 Treatment Team - Responsibilities of members of the treatment team include: - Medication Management- MD or INCOME AUDITOR - Medication Administration and Monitoring- Nurse - Group Therapy- Occupational Therapist - 1:1 Therapy,Disch Planning,family involvement-Purchasing Department Clerk
[2017-01-15 15:52] VITALS: BP 130/65
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
[2017-01-15 19:37] VITALS: BP 153/77
--- NOTE | 2017-01-15 21:00 | NUR ---
PT APPEARS SLIGHTLY ANXIOUS, PACING ABOUT UNIT. FOR THE MOST PART PT IS COOPERATIVE WITH STAFF AND PEERS, AND COMPLIANT WITH UNIT RULES. PT SPENDS THE MAJORITY OF THE EVENING ISOLATING IN PT ROOM, SLEEPING INSTEAD OF BEING IN [place]. MOOD IS STABLE, AFFECT IS EUTHYMIC, APPEARS SLIGHTLY NERVOUS, COMMUNICATION IS ORGANIZED AND NORMAL IN ALL ASPECTS, AND APPETITE IS NORMAL. PT DENIES SI AT THIS TIME.
--- NOTE | 2017-01-15 22:08 | NUR ---
Patient reported he fell out of bed approximately at 1900. Patient reports he was asleep and possibly hit his head. Patient was assessed and HOD notified of fall. Patient denied head pain, no visible signs of trauma on head or body, vitals were taken. Patient proceeded to eat ice cream. Patient returned to the nurses station and rubbing his head. Patient returned to the kitchen and ate popcorn. Patient paced the unit a few more times and reports being anxious. Patient is being monitored by staff and room chnaged closer to nurses station.
--- NOTE | 2017-01-15 22:17 | NUR ---
2100 PT. PACING AROUND THE UNIT C/O FEELING SWEATY TIGHTNESS QUESTIONING WHEN MD TO COME TO FLOOR TO ASSESS PT. HOD CALLED AGAIN ORDERED ATIVAN TO BE GIVEN ATIVAN 2MG PO GIVEN AT 2109. AWAITING HOD.
[2017-01-15 23:08] VITALS: BP 152/97
--- NOTE | 2017-01-15 23:29 | NUR ---
2230 HOD IN TO ASSESS PT. EKG ORDERED MORTIN 400MG FOR HEADACHE ATIVAN 1MG PO GIVEN. EKG WNL. PT.IN ROOM B2-1 TO BE ASSESSED THROUGHOUT SHIFT FOR ANY SEIZURE ACTIVITY.
[2017-01-16] VITALS (9 sets, daily range): BP systolic 131–149; BP diastolic 66–79
--- NOTE | 2017-01-16 00:25 | Event Note ---
Event Note Event Note: I was notified by RN that patient reported an episode of ?seizure and fell out of bed around 7 pm. No witness to this episode. Vitals were stable and no signs of trauma were noted. Since then, he had been pacing around the unit and seemed anxious. On my evaluation at 10 pm, he c/o chest tightness, headache and visual changes - seeing spots and flurries. He has been scoring about 8-10 on CIWA, advised to give him an extra dose to help his anxiety. EKG was done, no new changes. I discontinued Tramadol as it can lower seizure threshold. Gave motrin for headache. Will continue to monitor. If evidence of witnessed seizure, will consider transfer to medical floor.
--- NOTE | 2017-01-16 11:04 | NUR ---
PT IS WITHDRAWN AND ISOLATIVE. PT HAS BEEN IN BED ALL MORNING AND ONLY OOB FOR VS, MEDICATIONS, BREAKFAST. PT DID HOWEVER ATTEND PLANNING MEETING THIS MORNING WITH A GOAL TO "BE OUT IN THE COMMUNITY SOME MORE". PTS MOOD IS STABLE WITH FULL RANGE OF AFFECT. VS ARE STABLE AND DENIES ANY SI/HI TO THIS MHW.
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
--- NOTE | 2017-01-16 14:51 | SOCIAL WORKER PROG NOTE PSYCH ---
Social Work Progress Note Progress Note Pt reports feeling lost, unmotivated, hopeless. He reports the housing instability casues him to feel depressed. He continues to deny wanting to try a rehab, "Disha gone to so many, I dont like the message". Pt reports he wants to lay in bed with the covers over his face. Reached out brother, no one answered. Pt states he is agreeable to IOP and will "probably continue to stay at his Mom' s and elsewhere, until "I get my disability to go thru, its been a year now". Made an intake and faxed clinical to care his intake for IOP is 01/23/17 at 2[address] at [address] [place] [address]
--- NOTE | 2017-01-16 18:04 | CP SOUTH PROGRESS NOTE PSYCH ---
Psych (Inpt) Progress Note Progress Note Progress Note: I discussed this patient's progress to date, current mental status, treatment process in the context of the treatment plan, and discharge planning with staff/ team in the daily morning inpatient team meeting. I also met with the patient myself in individual session. SUBJECTIVE: "I just hate myself." OBJECTIVE: Current Medications Sig/Heather Start time Last Medication Dose Route Stop Time Status Admin Escitalopram Oxalate 20 MG DAILY 01/14 1218 AC 01/16 PO 1023 Folic Acid 1 MG 0800 01/15 1015 AC 01/16 PO 1022 Gabapentin 900 MG 0800,1300,2200 01/15 2200 AC 01/16 PO 1310 Ibuprofen 400 MG ONCE ONE 01/15 2315 DC PO 01/15 2316 Lorazepam 0.5 MG 0800 01/18 0800 AC PO 01/18 0801 Lorazepam 0.5 MG 0800,0 01/17 0800 AC PO 01/17 2201 Lorazepam 0.5 MG 1000,1300,1700,2200 01/16 1030 AC 01/16 PO 01/16 2201 1657 Lorazepam 1 MG Q2 HRS NEEDED PRN 01/15 1500 AC 01/15 PO 2306 Lorazepam 2 MG Q2 HRS NEEDED PRN 01/15 1500 AC PO Lorazepam 2 MG AT BEDTIME 01/14 2200 DC 01/15 PO 2110 Multivitamins 1 TAB 0800 01/15 1015 AC 01/16 PO 1022 Nicotine 14 MG 0800 01/16 0800 AC 01/16 TOP 1022 Nicotine 2 MG Q2 HRS NEEDED PRN 01/15 1815 AC 01/16 PO 1658 Nicotine 21 MG DAILY 01/14 1338 DC 01/15 TOP 0805 Ondansetron HCl 4 MG Q6-PRN PRN 01/14 2045 AC 01/14 PO 2034 Prazosin HCl 1 MG AT BEDTIME 01/14 2200 AC 01/15 PO 2110 Propranolol HCl 20 MG 0800,1300,1700,2200 01/16 1730 AC PO Propranolol HCl 10 MG BID 01/14 1219 DC 01/16 PO 1023 Thiamine HCl 100 MG 0800 01/15 1015 AC 01/16 PO 1022 Tramadol HCl 50 MG Q8P PRN 01/14 1900 DC PO Laboratory Tests 01/16 0637 Chemistry TSH (0.270 - 4.200 uIU/mL) 2.960 Vital Signs Date Time Temp Pulse Resp B/P Pulse O2 O2 Flow FiO2 Ox Delivery Rate 01/16 1616 94 149/77 01/16 1532 94 149/71 01/16 1238 88 140/79 01/16 1236 88 140/79 01/16 1023 97.0 87 18 131/66 01/16 0753 87 131/66 01/16 0739 97.0 87 131/66 01/16 0332 74 148/72 01/15 2308 97.2 73 152/97 01/15 2111 97.4 90 18 153/77 01/15 2110 97.4 90 18 153/77 01/15 193 97.4 90 ASSESSMENT: Patient reports continuing depression and anxiety. Lack of self- esteem. States he feels about the same as yesterday. Tolerating discontinuation of Abilify well. Patient continues to request benzodiazepines, "without the benzos there is no way I am not going to drink. Without it, I'm doomed to go back to drinking." Patient spent most of today isolating in his room, despite frequent encouragement to join groups and sit out in the public areas. States that he attended 1 group today, and will try to sit out this evening and watch television. Among patient's stressors is that he does not have a stable place to live. He is fearful that he will be forced back onto the street. Denies homicidal ideation, auditory hallucinations, visual hallucinations, paranoid ideation. Patient reports suicidal thoughts, feelings of worthlessness and lack of self- esteem, however does not believe that he would actually take his own life. Speech is well articulated, goal-directed, average in rate, volume and tone. The patient understands the risks/benefits/side effects of the medication and is agreeable to continue taking them. PLAN: Propranolol for anxiety. Patient reports Atarax has not been helpful for anxiety in the past, doubts I gabapentin is helpful. Continue with other current management. Continue to provide support and encouragement.
--- NOTE | 2017-01-16 20:34 | NUR ---
PT IS COOPERATIVE WITH STAFF AND PEERS, AND COMPIANT WITH UNIT RULES. PT IS APPEARS IN [facility] THE SHIFT PROGRESSES. PT COMPLAINS OF ANXIETY AT TIMES, AND STATES HE IS EXPERIENCING A HEADACHE AT TIMES. MOOD IS STABLE, AFFECT IS FULL RANGE, COMMUNICATION IS ORGANIZED AND NORMAL IN ALL RESPECTS, AND APPETITE IS NORMAL. PT DENIES SI AT THIS TIME.
[2017-01-17 07:42] VITALS: BP 137/73
[2017-01-17 07:44] VITALS: BP 130/78
[2017-01-17] MEDS ORDERED: NICORELIEF2 MG PO (11:30)
[2017-01-17] MEDS ORDERED: ESCITALOPRAM OX20 MG PO (11:36)
[2017-01-17 12:03] VITALS: BP 135/68
[2017-01-17 12:04] VITALS: BP 135/68
--- NOTE | 2017-01-17 12:06 | SOCIAL WORKER PROG NOTE PSYCH ---
Social Work Progress Note Progress Note Tino was in bed. Got up when prompted to meet with Andrew Lopez APRN and I. He was encouraged to get out of bed and attend groups. States he still feels very depressed. Denies any SI today. Reports high anxiety as well. He talked about being too passive, feeling crippled by his anxiety. Brings up issues related to his PTSD. Patient was tearful at points during the meeting. Discussed aftercare with attending an IOP. Tino is in agreement to go to [facility]. Had some concerns around seeing someone he knows in the dual track. This is someone he knows from using. Tino admits that he will continue to drink when he leaves. States he can leave the other substances behind, but talks about enjoying a beer or two at night. He also advocates to be put back on a benzo, despite our recommendation that the doesn't go on it. He will most likely stay at his Mom's apartment for awhile, but is really not permitted to stay there due to her housing regulations. Tino is upset that his housing is a concern and stated that if he can't get housing he may eventually . I told him I will give him an application for [address] [place] housing in [place]. Tino has court tomorrow in [facility]. He thinks he may have to do some half-way time because he has been unable to complete the community service. He stated that he is ready to be discharged today, so he can follow up at court tomorrow. I ended up setting up an appt. with [facility] for Sunday at 12:45pm. I also scheduled a primary care physician appt. for him for 01/24 at 2:40 with [facility] in [place], [place]. Scheduled [facility] to pick him up at 3: 30pm.
[2017-01-17 13:19] VITALS: BP 135/68
--- NOTE | 2017-01-17 13:40 | CP SOUTH PROGRESS NOTE PSYCH ---
Psych (Inpt) Progress Note Progress Note Progress Note: I discussed this patient's progress to date, current mental status, treatment process in the context of the treatment plan, and discharge planning with staff/ team in the daily morning inpatient team meeting. I also met with the patient myself in individual session. SUBJECTIVE: "My problem is that I keep everything in. I'm way too passive. I'm tired of being like this. I'm crippled by my anxiety and PTSD." OBJECTIVE: EEG today, as per Dr. Dumont. Normal EEG. There is no evidence of focal or paroxysmal features. Current Medications Sig/Heather Start time Last Medication Dose Route Stop Time Status Admin Escitalopram Oxalate 20 MG DAILY 01/14 1218 AC 01/17 PO 0742 Folic Acid 1 MG 0801/15 1015 AC 01/17 PO 0742 Gabapentin 900 MG 0800,1300,2200 01/15 2200 AC 01/17 PO 1318 Lorazepam 0.5 MG 0801/18 0800 AC PO 01/18 0801 Lorazepam 0.5 MG 0800,0 01/17 0800 AC 01/17 PO 01/17 220 0743 Lorazepam 0.5 MG 1000,1300,1700,2200 01/16 1030 DC 01/16 PO 01/16 220 2148 Lorazepam 1 MG Q2 HRS NEEDED PRN 01/15 1500 AC 01/15 PO 2306 Lorazepam 2 MG Q2 HRS NEEDED PRN 01/15 1500 AC PO Multivitamins 1 TAB 0800 01/15 1015 AC 01/17 PO 0742 Nicotine 14 MG 01/16 0800 AC 01/17 TOP 0742 Nicotine 2 MG Q2 HRS NEEDED PRN 01/15 1815 AC 01/17 PO 1319 Ondansetron HCl 4 MG Q6-PRN PRN 01/14 2045 AC 01/14 PO 2034 Prazosin HCl 1 MG AT BEDTIME 01/14 2200 AC 01/16 PO 2148 Propranolol HCl 20 MG 0800,1300,1700,2200 01/16 1730 AC 01/17 PO 1319 Propranolol HCl 10 MG BID 01/14 1219 DC 01/16 PO 1023 Thiamine HCl 100 MG 0800 01/15 1015 AC 01/17 PO 0742 Vital Signs Date Time Temp Pulse Resp B/P Pulse O2 O2 Flow FiO2 Ox Delivery Rate 01/17 1319 80 135/68 01/17 1204 80 135/68 01/17 1203 80 135/68 01/17 0744 97.2 73 130/78 01/17 0742 84 146/76 01/17 0742 96.8 71 137/73 01/16 2148 84 146/76 01/168 97.7 84 146/76 01/16 1949 97.7 84 146/76 01/16 194 97.7 84 146/76 01/16 1757 97.0 94 18 149/77 01/16 1616 94 149/77 01/16 1532 94 149/71 ASSESSMENT: Today I met the patient along with hospice social worker Nereida Courtney LCSW. Patient reports some small improvement to his anxiety since starting propranolol. Reports continuing depression. States he has no adverse effects from discontinuing Abilify. Patient states that he feels safe and ready for discharge. States and also believes that he will not kill himself. He must be at a court hearing tomorrow for a charge of driving under the influence. States that this has been continued many times because of continually being in rehabilitation and in other programs. He's been told by the court that they will not continue the case after this, and he is concerned that if he does not appear tomorrow, there will be a warrant for his arrest. He also states that he has not completed the mandatory community service, and is afraid that they may nursing home him. Denies suicidal ideation, homicidal ideation, auditory hallucinations, visual hallucinations, paranoid ideation. Patient states and also believes that he will not kill himself. Speech is well articulated, goal-directed, average in rate, volume and tone. Sad, quiet affect. Patient appears more calm, and clear minded than in the past. The patient understands the risks/benefits/side effects of the medication and is agreeable to continue taking them. PLAN: Discharge today. Patient has court tomorrow morning. IOP intake appointment scheduled for Sunday. States he can stay temporarily with his mother. Continue with current management as patient is improving. Continue to provide support and encouragement.
[2017-01-17] MEDS ORDERED: MINIPRESS1 MG PO (13:45)
[2017-01-17] MEDS ORDERED: GABAPENTIN300 M2 PO (13:46)
[2017-01-17] MEDS ORDERED: PROPRANOLOL HCL20 M1 PO (13:46)
--- NOTE | 2017-01-17 13:46 | DISCHARGE SUMMARY REPORT-PSYCH ---
Visit Information Visit Dates/Diagnosis' Admission Date: 01/13/17 Discharge Date: 01/17/17 Reason for Admission: Patient admitted through -ED after being brought in by ambulance on a PEER for suicidal ideation. He endorsed suicidal ideation with the plan to take all of his medication (Propanolol, Abilify, Gabepentin and Wellbutrin). Pt presented as hopeless and with high anxiety. He is anxious about his upcoming court date on for a DWI and failure to appear. This is the patient's third inpatient admission since June 2016. Psy Discharge Primary Diag: Major Depressive d/o, recurrent, severe. Psy Discharge Secondary Diag: General Anxiety Disorder, PTSD; alcohol use d/o; hx of concussions, hx of EtOH seizures; htn; asthma; hx of pulmonary embolism; pancreatitis; fatty liver; cocaine abuse d/o. Hospital Course Significant Lab Findings: Lab TSH 2.960 uIU/mL 01/16/17 0637 Urine Cocaine Screen 988 NG/ML H 01/13/17 1313 Course Complications: Patient was seen by neurology after an incident which may have been a seizure. An EEG was done, as per neurology "Impression: Normal EEG. There is no evidence of focal or paroxysmal features." Consultations: Patient was seen for neurology consult by Dr. Dumont. Please refer to his note for additional information. Patient was seen for evaluation after a suspected seizure by Dr. Roberts. Please see the Incident Note for additional information. Patient was seen for admission history and physical by Dr. Cruz. Please refer to the H&P for additional information. Allergies: Coded Allergies: NO KNOWN ALLERGIES (08/28/16) Hospital Course/TX Response: Today, the day of discharge, patient states, "My problem is that I keep everything in. I'm way too passive. I'm tired of being like this. I'm crippled by my anxiety and PTSD." I met the patient along with social service manager Nereida Courtney LCSW. Patient reports some small improvement to his anxiety since starting propranolol. Reports continuing depression. States he has no adverse effects from discontinuing Abilify. Patient states that he feels safe and ready for discharge. States and also believes that he will not kill himself. He must be at a court hearing tomorrow for a charge of driving under the influence. States that this court appearance has been continued many times because of continually being in rehabilitation and in other programs. He's been told by the court that they will not continue the case after this, and he is concerned that if he does not appear tomorrow, there will be a warrant for his arrest. He also states that he has not completed the mandatory community service, and is afraid that he may be incarcerated. Denies suicidal ideation, homicidal ideation, auditory hallucinations, visual hallucinations, paranoid ideation. Patient states and also believes that he will not kill himself. Speech is well articulated, goal-directed, average in rate, volume and tone. Sad, quiet affect. Patient appears more calm, and clear minded than in the past. The patient understands the risks/benefits/side effects of the medication and is agreeable to continue taking them. Patient reports tolerating medications well, without complaint. States he is safe and ready for discharge Discharge HBIPS - Tobacco Use Treatment Offered Post DC Medications Offered: Script Given-See Med List Post DC Tobacco Treatment Plan: [facility] Program Appt Date: 01/31/17 Program Appt Time: 1600 - EtOH/Drug Use D/O Treatment Offered Post DC Medications Offered: Ref Med EtOH/Drug Use D/O Post DC EtOH/SubAbuse TX Plan: [facility] SubAbuse/Dual [facility] Program Appt Date: 01/19/17 Program Appt Time: 1245 Metabolic Screening - Screen if on a Neuroleptic Medication - Metabolic screening should include: - Blood Pressure, BMI, Glucose or Hgb A1c, & a - Lipid profile from within the past 365 days. Metabolic Screening ([x]) Not Applicable, patient not on a neuroleptic. OR () Patient on a neuroleptic(s) . Enter below results for Glucose or Hemoglobin A1C, and lipid panel if obtained during the last 365 days. BMI: 37.600 Blood Pressure: 135/68 Laboratory Results (If applicable): Discharge Instructions General Discharge Information Discharge Medications: Discharge Medications- (Dose, route, freq, indication): START taking these NEW Home Medications: Nicotine Dose: ORAL, EVERY 2 HOURS Qty: 30 Called in to (Nicorelief) 2 MG 2 Milligram NEEDED as needed for Refills: 0 Pharm 1 GUM smoking cessation Prazosin Dose: ORAL, AT BEDTIME for Qty: 14 Called in to Hydrochloride 1 Milligram NIGHTMARES Refills: 0 Pharm 1 (Minipress) 1 MG Last Taken: 01/16/17 CAPSULE Time: 2200 Propranolol HCl Dose: ORAL, Qty: 56 Called in to (Propranolol HCl) 20 20 Milligram 0800,1300,1700,2200 for Refills: 0 Pharm 1 MG TABLET ANXIETY Last Taken: 01/17/17 Time: 1300 Gabapentin Dose: ORAL, 0800,1300,2200 for Qty: 126 Called in to (Gabapentin) 300 MG 900 Milligram ANXIETY Refills: 0 Pharm 1 CAPSULE Last Taken: 01/17/17 Time: 1300 CONTINUE taking these Home Medications: Escitalopram Oxalate Dose: ORAL, DAILY for MENTAL Renewed (Escitalopram Oxalate) 1 Tablet HEALTH Called in to 20 MG TABLET Last Taken: 01/17/17 Pharm 1 Time: 0800 STOP taking these DISCONTINUED Home Medications: Aripiprazole (Abilify) 20 MG Dose: ORAL, Every Morning for MENTAL TABLET 1 Tablet HEALTH Reason Stopped: Per Doctor Decision Propranolol HCl (Propranolol Dose: ORAL, TWICE DAILY for BP/ANXIETY HCl) 10 MG TABLET 1 Tablet Reason Stopped: Changed Dose Trazodone HCl (Trazodone HCl) Dose: ORAL, Every night as needed for 50 MG TABLET 1 Tablet SLEEP Reason Stopped: Per Doctor Decision 1: [id number], [address] [place] [address] Your Preferred Pharmacy [id number] [address] [place] [address] Multiple Neuroleptics: ([x]) Not Applicable OR Document below three failed attempts at monotherapy, or a plan to taper to monotherapy, or augmentation of Clozapine. () Patient's Diet: Regular Patient's Activity: No restrictions. DC Disposition: Patient will be staying temporarily with his mother. Recommendations: Follow up at [facility]. Follow up at [facility] Maintain sobriety. Follow up with primary care at [facility]. Referred To: Post Discharge Referrals INTENSIVE OUTPT PSYCHIATRY Service Date: 01/19/17 [address] [id number] Notes: [facility] Intake for 01/19/17 12:45pm [address] [phone] Intake appointment on 01/23/2017 at 2pm. Primary Care [facility] [address] [place] [address], [place] [address] [address] [facility]. Appointment on 01/24 at 2:40pm . Copies To: [facility]; Intensive Outpt Psychiatry
--- NOTE | 2017-01-17 14:36 | ELECTROENCEPHALOGRAM REPORT ---
Electroencephalogram Report Electroencephalogram Results Date of service: 01/17/17 Attending MD: PRATIMA VILLALOBOS MD Reception Clerk: Leobardo Alberto EEG Number: [id number] Test Utilizes: 10-20 system, 21 lead 18 channel digital recording Pertinent Hx/Physical/Neuro Findings/Clin Diagnosis: Rule out seizure Inpatient Medications: Current Medications Sig/Heather Start time Last Medication Dose Route Stop Time Status Admin Escitalopram Oxalate 20 MG DAILY 01/14 1218 AC 01/17 PO 0742 Folic Acid 1 MG 0800 01/15 1015 AC 01/17 PO 0742 Gabapentin 900 MG 0800,1300,2200 01/15 2200 AC 01/17 PO 1318 Lorazepam 0.5 MG 0800 01/18 0800 AC PO 01/18 0801 Lorazepam 0.5 MG 0800,0 01/17 0800 AC 01/17 PO 01/17 2201 0743 Lorazepam 0.5 MG 1000,1300,1700,2200 01/16 1030 DC 01/16 PO 01/16 2201 2148 Lorazepam 1 MG Q2 HRS NEEDED PRN 01/15 1500 AC 01/15 PO 2306 Lorazepam 2 MG Q2 HRS NEEDED PRN 01/15 1500 AC PO Multivitamins 1 TAB 0800 01/15 1015 AC 01/17 PO 0742 Nicotine 14 MG 0800 01/16 0800 AC 01/17 TOP 0742 Nicotine 2 MG Q2 HRS NEEDED PRN 01/15 1815 AC 01/17 PO 1319 Ondansetron HCl 4 MG Q6-PRN PRN 01/14 2045 AC 01/14 PO 2034 Prazosin HCl 1 MG AT BEDTIME 01/14 2200 AC 01/16 PO 2148 Propranolol HCl 20 MG 0800,1300,1700,2200 01/16 1730 AC 01/17 PO 1319 Propranolol HCl 10 MG BID 01/14 1219 DC 01/16 PO 1023 Thiamine HCl 100 MG 0800 01/15 1015 AC 01/17 PO 0742 Interpretation: The predominant posterior background rhythm consists of low-voltage 8-10 cps activity which attenuates to eye-opening. Lower voltage faster frequencies were seen over the anterior head regions bilaterally. No focal, paroxysmal or lateralizing features were appreciated. Hyperventilation and photic stimulation induced no abnormalities. Impression: Normal EEG. There is no evidence of focal or paroxysmal features.
--- NOTE | 2017-01-17 15:14 | NUR ---
PT PRESENT ON UNIT HOWEVER DOES ISOLATE AT TIMES, MET WITH SOAKER HELPER, THIS PASTE UP COPY CAMERA OPERATOR AND PROVIDER AND SCHEDULED FOR DISCHARGE TODAY, REPORTED FEELING READY AND AN OVERALL IMPROVEMENT IN MOOD, SLEEP AND APPETITE, WHEN ASKED DIRECTLY DENIES SI/HI/HALLUCINAIONS AND HAS + UNDERSTANDING OF DISCHARGE FOLLOW-UP AND MEDICATIONS. PT INFORMATION PACKETS RE: SI AND DEPRESSION GIVEN AND PT RESOURCE GUIDE REVIEWED ALONG WITH PERTINENT NUMBERS I.E., [facility], [facility] AND SUICIDE HOTLINE, NO QUESTIONS OR CONCERNS, MOOD STABLE WITH FULL RANGE AFFECT, DID HAVE AN EEG AT AROUND 1330 TODAY AND PER PROVIDER CINDY ERNST WILL FOLLOW-UP RE: THESE RESULTS.
== END 2017-01-17 15:05 | DRG 751 ==
LOC: ERH 12:49 → ERHI 22:17 → CP SOUTH 22:17 → ENPENDDIS 22:17 → CP SOUTH 23:13
PROVIDERS: Emergency Medicine; ADMIT Psychiatry & Neurology Psychiatry
DX: F33.2 Major depressive disorder, recurrent severe without psychotic features (principal); K85.90 Acute pancreatitis without necrosis or infection, unspecified; K76.0 Fatty (change of) liver, not elsewhere classified; F41.1 Generalized anxiety disorder; F43.10 Post-traumatic stress disorder, unspecified; I10 Essential (primary) hypertension; F10.10 Alcohol abuse, uncomplicated; J45.909 Unspecified asthma, uncomplicated; F14.10 Cocaine abuse, uncomplicated
CPT/HCPCS: 36415; 80307; 81003; 93005; 93010; 95816; 96372; G0480; J0401; J1200; J1630; J3101; J3490

== ENCOUNTER 2017-01-21 03:42 | Inpatient (IN) | payer OTHER ==
[2017-01-21] VITALS (8 sets, daily range): BP systolic 120–167; BP diastolic 54–81
[~2017-01-21] VITALS: Ht 177.8 cm; Wt 102.1 kg
[~2017-01-21 03:42] MED LIST changes: +MINIPRESS1 MG PO; +NICORELIEF2 MG PO; +PROPRANOLOL HCL20 M1 PO
--- NOTE | 2017-01-21 03:46 | NUR ---
SECURITY AT BEDSIDE FOR WANDING, PT CHANGED INTO BLUE BH SCRUBS.
--- NOTE | 2017-01-21 03:46 | NUR ---
PT BIBA ON POLICE PAPER. PER EMS PT TOOK OVER 30+ GABAPENTIN IN ATTEMPTS TO OVERDOSE AND DRANK 3 TALL BEERS. PER PD PT STATED "I HOPE IT KILLS ME". +SI, DENIES HI.
--- NOTE | 2017-01-21 03:52 | NUR ---
AT BEDSIDE FOR PT EVALUATION
--- NOTE | 2017-01-21 03:54 | NUR ---
POLICE PAPER PLACED IN PTS CHART
--- NOTE | 2017-01-21 04:14 | NUR ---
EKG DONE AND SHOWN TO DR. WONG.
[2017-01-21 04:17] LABS: ABSOLUTE BASOPHIL COUNT 0.2 /CUMM (0.0-0.2); ABSOLUTE EOSINOPHIL COUNT 0.3 /CUMM (0.0-0.7); ABSOLUTE GRANULOCYTE CT 6.1 /CUMM (1.4-6.5); ABSOLUTE LYMPH COUNT 5.6 /CUMM (1.2-3.4); ABSOLUTE MONOCYTE COUNT 0.8 /CUMM (0.10-0.60); BASOPHIL % 1.2 % (0.0-2.0); EOSINOPHIL % 2.2 % (0-5); GRANULOCYTE % 46.8 % (42.2-75.2); HEMATOCRIT 45.9 % (42-52); MEAN CORPUSCULAR HGB 29.4 PG (27.0-31.0); MEAN CORPUSCULAR HGB CONC 33.9 G/DL (33.0-37.0); MEAN CORPUSCULAR VOLUME 86.8 FL (80.0-94.0); MEAN PLATELET VOLUME 7.3 FL (7.4-10.4); PLATELET COUNT 326 /CUMM (130-400); RBC DISTRIBUTION WIDTH 13.9 % (11.5-14.5)
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
--- NOTE | 2017-01-21 04:27 | NUR ---
PT RESTING IN STRETCHER AT THIS TIME, OFFERING NO COMPLAINTS. REGULAR AND EQUAL RESPIRATIONS NOTED, NO APPARENT DISTRESS. WILL CTM.
--- NOTE | 2017-01-21 06:33 | NUR ---
PT REMAINS ASLEEP AT THIS TIME. OFFERING NO COMPLAINTS. REGULAR AND EQUAL RESPIRATIONS NOTED. PT IN CLEAR VIEW OF THIS RN. WILL CONTINUE TO MONITOR.
--- NOTE | 2017-01-21 06:34 | NUR ---
URINE TRIO SENT TO LAB BY SUMI SALAS
--- NOTE | 2017-01-21 07:24 | NUR ---
ASSUMED CARE OF THIS PATIENT, REPORT RECEIVED FROM HOLLI MARIE PT LAYING ON STRETCHER IN ERH RM 7, APPEARS TO BE SLEEPING, REGULAR RESPIRATIONS NOTED.
--- NOTE | 2017-01-21 07:30 | NUR ---
PT REQUESTING TO GO HOME. ADVISED THAT HE NEEDS TO REMAIN IN ER FOR CRISIS EVAL. QUESTIONED PATIENT ABOUT WHY HE TOOK THE NEURONTIN, PT RESPONDS "TO GET HIGH BUT IT DIDN'T WORK". PT CALM/COOPERATIVE AT THIS TIME.
--- NOTE | 2017-01-21 07:40 | NUR ---
PER DR DALAL PT MEDICALLY CLEARED, PT MOVED TO [facility] AT THIS TIME PT ATE 100% OF BREAKFAST TRAY THAT HAD BEEN PROVIDED EARLIER. REQUESTED SECOND TRAY, SAME ORDERED, SPOKE WITH DIANN IN [employer] FOR SAME.
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
--- NOTE | 2017-01-21 10:44 | NUR ---
PER INSURANCE ANALYST PT IS TO BE ADMITTED TO [facility]. ALSO PER INSURANCE ANALYST PT HAS HX OF ETOH. PER CONVERSATION WITH PATIENT HE DRINKS APPROX 8 BEERS/NIGHT, LAST DRANK LAST NIGHT. STATES HAS BEEN DRINKER X YEARS BUT HAD 4 DAYS OF SOBRIETY ABOUT A WEEK AGO. DENIES FEELING SHAKEY AT PRESENT. REPORTS N/V EARLIER BUT NOT NAUSEAS AT PRESENT. COMPLAINS OF SLIGHT H/A PAIN. CIWA PROTOCOL INITIATED AT THIS TIME.
--- NOTE | 2017-01-21 11:02 | NUR ---
PT MEDICATED WITH ZOFRAN AND ATIVAN PER ORDERS DR DALAL
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
--- NOTE | 2017-01-21 11:40 | NUR ---
REPORT TO HOLLI FLORES
--- NOTE | 2017-01-21 11:48 | NUR ---
TRANSPORT BOOKED (LEFT MESSAGE)
--- NOTE | 2017-01-21 11:55 | NUR ---
VALUABLES ENVELOPE X 1 AND BELONGINGS BAG X 1 SENT WITH PATIENT TO CPS.
--- NOTE | 2017-01-21 12:53 | NUR ---
Pt arrived in [facility] at 1204, A&O X 3, compliant with admission process and procedure. Pt is adnitted with with diagnosis of Major Depressive Disorder, CASANDRA, PTSD, with ETOH Abuse and Intoxication. Hx of [place] and cocaine Abuse and Suicidal Ideation/ Abuse. Pt continues to endorse passive SI, induced by homelessnes feeling of worthlessness and guilt, loss of energy and sleep problems. Mood is stable but with depressive affect verbalizes no intension for self-harm while in the hospital. Pt also denies thought of harming someone else.
--- NOTE | 2017-01-21 14:11 | PN- Medicine Consult ---
Assessment/Plan Assessment/Plan Assessment: This is a 31-year-old male with extensive psychiatric history and hospitalizations for the same suicidal ideations, hypertension, asthma, alcohol abuse, polysubstance abuse, pancreatitis. Was brought to the ER following ingestion of 30+ Gabapentin/suicidal ideations. Resting comfortably in bed currently. Does offer any complaints. Plan: 1. Continue psychiatric medications as per the psychiatrist. 2. Continue propranolol for blood pressure. Pressure is well controlled. 3. Continue albuterol inhaler when necessary for history of asthma. Patient is not in exacerbation currently. Subjective Subjective: Comfortable. Not offer any complaints Review of Systems Constitutional: Denies: fever, malaise, weakness. EENTM: Reports: no symptoms. Cardiovascular: Reports: no symptoms. Respiratory: Reports: no symptoms. Gastrointestinal: Reports: no symptoms. Genitourinary: Reports: no symptoms. Musculoskeletal: Reports: no symptoms. Skin: Reports: no symptoms. Objective Last 24 Hrs of Vital Signs/I&O Vital Signs Date Time Temp Pulse Resp B/P Pulse O2 O2 Flow FiO2 Ox Delivery Rate 01/21 1241 97.1 92 129/77 01/21 1239 97.1 92 129/77 01/21 1142 97.2 78 16 120/56 98 Room Air 01/21 1049 97.0 78 20 120/54 95 Room Air 01/21 1047 97.0 78 20 120/54 01/21 0937 97.3 90 16 130/57 95 Room Air 01/21 0733 85 20 117/55 95 Room Air 01/21 0633 96.9 87 20 120/72 96 Room Air 01/21 0354 95.4 78 20 134/71 96 Room Air 01/21 0350 Room Air Intake & Output 01/21 1600 01/21 0800 01/21 0000 Intake Total Output Total Balance Patient 225 lb 225 lb Weight Physical Exam General Appearance: well developed/nourished, no apparent distress, alert, awake Head: atraumatic Ears, Nose, Throat: normal pharynx Neck: normal inspection Cardiovascular: regular rate/rhythm Respiratory: normal breath sounds, no respiratory distress, lungs clear Peripheral Pulses: 4+ dorsalis pedis (R), 4+ dorsalis pedis (L) Abdomen: normal bowel sounds, soft, non-tender, no organomegaly Extremities: no edema Current Medications: Current Medications Sig/Heather Start time Last Medication Dose Route Stop Time Status Admin Lorazepam 2 MG ONCE ONE 01/21 1100 DC 01/21 PO 01/21 1101 1102 Lorazepam 0 .STK-MED ONE 01/21 1054 DC PO Ondansetron HCl 4 MG ONCE ONE 01/21 1115 DC 01/21 PO 01/21 1116 1102 Ondansetron HCl 0 .STK-MED ONE 01/21 1054 DC PO Results Last 24 Hrs Lab/Brian Results: Laboratory Tests 01/21/17 0620: Urine Opiates Screen < 100.00, Methadone Screen < 40, Barbiturate Screen < 60, Ur Phencyclidine Scrn < 6.00, Amphetamines Screen < 100, U Benzodiazepines Scrn < 85, Urine Cocaine Screen 170, Urine Cannabis Screen < 5.00 01/21/17 0358: Anion Gap 12, Estimated GFR > 60, BUN/Creatinine Ratio 13.0, Glucose 96, Calcium 9.1, Total Bilirubin 0.3, AST 26, ALT 47, Alkaline Phosphatase 93, Total Protein 7.5, Albumin 4.4, Globulin 3.1, Albumin/Globulin Ratio 1.4, CBC w Diff NO MAN DIFF REQ, RBC 5.30, MCV 86.8, MCH 29.4, RDW 13.9, MPV 7.3 L, Gran % 46.8, Lymphocytes % 43.3, Monocytes % 6.5, Eosinophils % 2.2, Basophils % 1.2, Absolute Granulocytes 6.1, Absolute Lymphocytes 5.6 H, Absolute Monocytes 0.8 H, Absolute Eosinophils 0.3, Absolute Basophils 0.2, PUBS MCHC 33.9, Salicylates < 1.0, Acetaminophen < 10.0 L, Serum Alcohol 192.0
[2017-01-21] MEDS ORDERED: VENTOLIN HFA18 GM NS (14:17)
--- NOTE | 2017-01-21 20:55 | NUR ---
PT IS CALM, COOPERATIVE WITH STAFF AND PEERS, AND COMPLIANT WITH UNIT RULES. PT OFTEN IS SLEEPING IN PT ROOM FOR LONG PERIODS, STAYING OUT OF [facility]IE[place]. MOOD IS STABLE, AFFECT IS EUTHYMIC TO FULL RANGE, COMMUNICATION IS ORGANIZED AND APPEARS NORMAL IN ALL RESPECTS, AND APPETITE IS NORMAL. PT DEIES SI AT THIS TIME.
[2017-01-22] VITALS (10 sets, daily range): BP systolic 126–147; BP diastolic 58–82
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
--- NOTE | 2017-01-22 10:48 | SOCIAL WORKER TX PLAN PSYCH ---
Treatment Plan - Please Document: - Evidence that there is ongoing collaboration between - the patient and the interdisciplinary team, - including the patient's active participation and - responsibility for engaging in the treatment regimen, - and that the treatment plan is individualized and - relevant to the patient's conditions. - Treatment plan should reflect documentation indicating - that all active therapeutic efforts are included. Strengths/Capabilities: Pt is agreeable to inpatient hospitalization Physical Limitations (Interventions): none identified Patient Identified Trmt Goals: "I need help with my depression" Discharge Plan: [facility] Problem/Goals #1 Problem #1: depression Goal (Short Term): Patient will get out of bed and attend 3 groups per day. Goal (Tailing Hand): Patient will be able to verbalize decreased depression and feel mobilized to complete daily life activity Interventions: Patient will be offered medication management with the HEATER OPERATOR, groups on coping skills, symptom management, focus group, goals group, accupuncture, relaxation skills. residential support worker will discuss current legal issues, follow up, and plan for aftercare. Modalities: group/ individual Problem/Goals #2 Problem #2: polysubstance use Goal (Short Term): patient will identify triggers to use Goal (Jail): patient will identify the risks of continuing to use. Interventions: Patient will be offered groups on relapse prevention, symptom management, AA. residential support worker will discuss triggers and ways to avoid relapse. DSM5/PS Stressors/Medical Prob Diagnosis' (DSM 5, Stressors, Medical): F33.2 Major Depressive Disorder, recurrent, severe F10.20 Alcohol Use Disorder, severe F41.1 Generalized Anxiety Disorder F14.20 Stimulant Use Disorder, Cocaine, severe F11.20 Opioid Use Disorder, moderate F43.10 PTSD hx of ETOH seizures; htn; asthma; hx of pulmonary embolism; pancreatitis; fatty liver Current GAF: 28 Treatment Team - Responsibilities of members of the treatment team include: - Medication Management- MD or HEATER OPERATOR - Medication Administration and Monitoring- Nurse - Group Therapy- Occupational Therapist - 1:1 Therapy,Disch Planning,family involvement-Honing Machine Operator
--- NOTE | 2017-01-22 10:48 | SOCIAL WORKER PROG NOTE PSYCH ---
Social Work Progress Note Progress Note Tino was in bed sleeping. He stated he wasn't feeling that well and that his stomach felt sick. I asked what happened after he left last week? He said he didn't go to court and didn't make his IOP intake at [place]. When asked why? He said "I'm just lazy". I told him there may be a warrant for his arrest and that we should look into that. He was willing for to sign a release for [facility]. He said he didn't know how to get there. He didn't give a direct answer when I asked if he was trying to kill himself with the Gabapentin. He said at first "I don't know, maybe I was trying to get high", then when questioned further stated "I guess I was trying to kill myself". Affect was inappropriate to response as he smiled. He continues to say he is very depressed. When asked if he is suicidal he says no. He said he wants to leave the hospital. I asked if he wanted to sign a 3 day paper to terminate voluntary status, but he didn't feel the need to. He signed a release for [facility]. He has an intake at [facility] tomorrow at 2pm. Encouraged him to get out of his room and attend group today. Called Kamilah (operations coordinator) at [facility] and left a message that he is here again. Called [facility], there is an arrest warrant per the fans clerk. He has 5 days to vacate the order and would need to do that in person. 5 days would put him at tomorrow 01/23. I was encouraged to call his publications inspector Media Relations Manager German Caballero [phone]. The Media Relations Manager stated that he will have to turn himself into [place] police department if he can't be there to vacate the order. He said Tino has done this several times. [place] is [address].
--- NOTE | 2017-01-22 13:58 | NUR ---
PT NOT VISIBLE MUCH IN THE MILIEU TODAY. HE ATTENDED NO GROUPS, AND INTERACTS MINIMALLY. PT DOES COME OUT FOR MEALS, AND COMPLIANT ABOUT GETTING HIS VITALS DONE. WHEN IN THE MILIEU PT IS COMPLIANT WITH STAFF DIRECTION, AND THE RULES OF THE UNIT. HE DENIES THOUGHTS OF HURTING HIMSELF WHEN ASKED.
--- NOTE | 2017-01-22 20:27 | NUR ---
PT IS ISOLATIVE AND WITHDRAWN, SPENDING THE MAJORITY OF THE EVENING IN ROOM. WHEN APPEARING IN MILIEU HAS LIMITED INTERACTION WITH OTHERS. MOOD IS STABLE, AFFECT IS EUTHYMIC TO FULL RANGE, COMMUNICATION IS ORGANIZED AND APPEARS NORMAL IN ALL RESPECTS, AND APPETITE IS NORMAL. PT DENIES SI AT THIS TIME.
[2017-01-23] VITALS (8 sets, daily range): BP systolic 136–150; BP diastolic 73–86
--- NOTE | 2017-01-23 08:26 | CP SOUTH PROGRESS NOTE PSYCH ---
Psych (Inpt) Progress Note Progress Note Include the following elements, when applicable: Involvement in the active treatment of the patient with behavioral observations of the patient and the patient's response to the treatment. Review of the ongoing treatment process in the context of the treatment plan. Indication of how multi-disciplinary staff members are carrying out the treatment plan. Plans for future interventions and recommendations for revision of the treatment plan. Liaison with other physicians/providers. Progress Note: I discussed this patient's progress to date, current mental status, treatment process in the context of the treatment plan, and discharge planning with staff/ team in the daily morning inpatient team meeting. I also met with the patient myself in individual session.] S: "I'm fine." O: Current Medications Sig/Heather Start time Last Medication Dose Route Stop Time Status Admin Escitalopram Oxalate 20 MG 01/22 0800 AC 01/22 PO 0754 Lorazepam 1 MG Q4 HRS NEEDED PRN 01/22 1845 AC PO Lorazepam 2 MG Q4 HRS NEEDED PRN 01/22 1845 AC PO Nicotine 21 MG 0801/23 0800 AC TOP Nicotine 7 MG 1700 01/22 1700 DC 01/22 TOP 01/22 1701 1639 Nicotine 2 MG Q2H PRN 01/21 1830 AC 01/22 PO 1924 Olanzapine 2.5 MG 0800,01/22 2200 AC 01/22 PO 2132 Olanzapine 2.5 MG Q6-PRN PRN 01/22 1900 AC PO Prazosin HCl 1 MG 01/21 2200 AC 01/22 PO 2132 Propranolol HCl 20 MG 0800,1400,01/21 AC 01/22 PO 2132 Vital Signs Date Time Temp Pulse Resp B/P Pulse O2 O2 Flow FiO2 Ox Delivery Rate 01/23 0755 96.5 90 136/73 01/23 0742 96.5 90 136/73 01/22 2132 147/71 01/22 2132 147/01/22 1951 97.9 85 14701/22 1947 97.9 85 14701/22 1609 81 146/68 01/22 1604 81 146/68 01/22 1429 93 140/73 01/22 1427 93 140/73 01/22 1229 70 142/80 01/22 1216 70 142/80 A: Chart, progress notes, labs, VS, CIWA scores (0-3 x last 24 hours), and medication list were reviewed. Zyprexa 2.5mg was started off-label yesterday for anxiety/racing thoughts, in addition to mood stabilization. Initially met with patient today, together with [facility] nursing home manager Merlene Bowser RN, due to nursing staff reports from overnight that the patient was noted laying in bed last evening with a female peer. When questioned about this reported event, the patient denied that any inappropriate contact/sexual activity occurred. He reported that he had been laying in bed and that she climbed into bed with him. He reported he then told her that safety checks were due soon and she left his room. He reported that he would next time report to nursing staff. On individual encoutner today, patient reported continued anxiety and depression. He reported depression of 5/10 (10 being the worst) and anxiety of 7 /10 (10 being the worst). He denied feeling hopeless, helpless, worthless, or guilty. He denied active and passive suicidal ideation, plans and intent. He denied homicidal ideation, auditory and visual hallucinations. Thought process was linear and organized. Thought content was anxious. Cognition was intact. He reported his sleep and appetite were good. When asked again about the event leading to current psychiatric hospitalization, patient reported that overdose was not a suicide attempt. When asked what led his reports to change since yesterday, he reported "because I didn't want to kill myself, just wanted to get high." Patient reported he is not motivated for sobriety and declined referrals to inpatient rehabs. Patient was agreeabe to transition to dual dx IOP, however could not identify ways to overcome his lack of motivation which initially prevented him from attending IOP intake following last discharge from [facility]. Patient reported tolerating medications well and denied untoward medication effects. He was agreeable to continue taking. Later today I was informed by Nereida Marino LCSW that she spoke to [address] and if the patient does not appear to court tomorrow he will be unable to clear his active warrant which likely will result in senior care. Case was reviewed with Nereida Marino LCSW and Dr. Mendenhall; it was determined that if patient could go directly from [facility] post-discharge to [address] tomorrow via friend/family then patient could discharge. Patient reported that his brother confirmed he would pick him up from the hospital at 9AM tomorrow morning. The patient appeared future oriented, and was very focused on getting to court to clear warrant. P: 1. Continue monitoring patient on unit for suicidal ideation, mood, racing thoughts, and alcohol withdrawal. 2. Will increase Zyprexa from 2.5mg BID to 5mg BID for anxiety/mood stabilization. 3. Patient to discharge tomorrow into the care of his brother directly to court and f/u at [facility].
--- NOTE | 2017-01-23 11:39 | SOCIAL WORKER PROG NOTE PSYCH ---
Social Work Progress Note Progress Note Pt was informed he would have a warrant out for his arrest, due to missing court last week, he states he has 5 days to vacate it, and Nereida the public health social worker here spoke to court and was told they wouldn't do it, essentially he would have to go to court tomorrow in order to be in the clear regarding warrant. Pt is anxious, and wants to "take care of the court thing, if I don't that will cause me more trouble and I don't want to go to retirement". Pt requesting to be discharged. Pt denies si/hi/ah/vh. Pt states he was not intentionally trying to harm himself, rather he states he was "doing anything I could to get high". Nereida will follow up. Above information was written by Bridgett Castañeda LCSW. Tori Jordan APRN and I also met with Tino together and informed him that if he could get a ride directly from the hospital to court tomorrow we would be willing to discharge him. Tino stated that the only chance he has is of his Brother coming to get him. Tino will call his Brother and see about arranging a ride. I also gave Tino his public defenders phone number to call and talk to him about the plan. Tino was able to get ahold of his Brother and he will pick him up at 9am tomorrow. Tino and I talked about following up at [facility] in [place] for aftercare. He has never been there before.
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
--- NOTE | 2017-01-24 06:00 | NUR ---
PT IN BED EARLY. HE APPEARED TO SLEEP WELL. PT WILL DC AT 0900.
[2017-01-24] MEDS ORDERED: NICOTINE PATCH1 EAC3 TOP (07:29)
[2017-01-24] MEDS ORDERED: OLANZAPINE5 M2 PO (07:35)
[2017-01-24 07:49] VITALS: BP 129/78
[2017-01-24 07:54] VITALS: BP 129/78
--- NOTE | 2017-01-24 07:54 | NUR ---
PT IS SCHEDULED FOR D/C TODAY TO [facility]HE REPORTS HIS MOOD IS IMPROVED AND HE DENIES ANY THOUGHTS OF SUICIDE OR SELF HARM. PT VERBALIZES A GOOD UNDERSTANDING OF HIS MED REGIME AND TREATMENT PLAN. HE IS GIVEN EDUCATION RELATED TO MANAGING HIS MOOD D/O AND ON SUICIDE PREVENTION AND ON ALCOHOL ABUSE AND DEPENDENCE
--- NOTE | 2017-01-24 07:55 | CP SOUTH PROGRESS NOTE PSYCH ---
Psych (Inpt) Progress Note Progress Note Include the following elements, when applicable: Involvement in the active treatment of the patient with behavioral observations of the patient and the patient's response to the treatment. Review of the ongoing treatment process in the context of the treatment plan. Indication of how multi-disciplinary staff members are carrying out the treatment plan. Plans for future interventions and recommendations for revision of the treatment plan. Liaison with other physicians/providers. Progress Note: [I discussed this patient's progress to date, current mental status, treatment process in the context of the treatment plan, and discharge planning with staff/ team in the daily morning inpatient team meeting. I also met with the patient myself in individual session.] S: "I feel fine, I need to take care of my warrant. I'm ready to." O: Current Medications Sig/Heather Start time Last Medication Dose Route Stop Time Status Admin Escitalopram Oxalate 20 MG 01/22 08 AC 01/24 PO 0838 Lorazepam 1 MG Q4 HRS NEEDED PRN 01/22 1845 AC PO Lorazepam 2 MG Q4 HRS NEEDED PRN 01/22 1845 AC PO Nicotine 21 MG 01/23 0800 AC 01/23 TOP 0826 Nicotine 2 MG Q2H PRN 01/21 1830 AC 01/23 PO 1842 Olanzapine 5 MG 0800,01/23 2200 AC 01/24 PO 0838 Olanzapine 2.5 MG Q4 HRS NEEDED PRN 01/23 1430 AC 01/23 PO 1842 Olanzapine 2.5 MG 0800,01/22 2200 DC 01/23 PO 0826 Olanzapine 2.5 MG Q6-PRN PRN 01/22 1900 DC 01/23 PO 1305 Prazosin HCl 1 MG 01/21 2200 AC 01/23 PO 2312 Propranolol HCl 20 MG 0800,1300,1700,0 01/24 08 AC 01/24 PO 0838 Propranolol HCl 20 MG 0800,1400,01/21 DC 01/23 PO 2017 Vital Signs Date Time Temp Pulse Resp B/P Pulse O2 O2 Flow FiO2 Ox Delivery Rate 01/24 838 84 129/78 01/24 0754 95.9 84 129/78 01/24 0749 95.9 84 129/78 01/23 2312 88 140/74 01/23 2018 88 140/74 01/23 1934 98.2 88 140/74 01/23 1924 98.2 88 140/74 01/23 1606 85 150/77 01/23 1552 85 150/77 01/23 1305 77 145/86 01/23 1222 77 145/86 01/23 1206 77 145/86 A: Chart, progress not, VS, CIWA scores, labs and medication list were reviewed. Last evening Zyprexa 2.5mg BID was increased to 5mg BID for mood stabilization/ anxiety. Met with the patient today on the date of discharge. He presented alert and oriented to person, place, time and situation. Affect was calm and full-range. Mood was "fine." Eye contact was appropriate. Speech was normal in rate, tone and volume. He had no complaints. He denied feeling hopeless, helpless, worthless, and guilty. He reported depression of 4/10 (10 being the worst) and anxiety of 6/10 (10 being the worst) secondary to scheduled court appearance today. He denied passive and active suicidal ideation, plans and intent. He denied homicidal ideation. He reported his "mother" as a protective factor. He stated and also believed he will not harm himself or others. He expressed motivation to go directly to court this morning via transportation from his brother. He verbalized the legal consequence of not appearing in court today such as penitentiary time. Patient was goal oriented to attend court as he wants to clear current active warrant. Patient denied suicidal ideation if court should result in penitentiary. He reported "I need to clear this issue, whether it's just a court appearance or penitentiary, it's the only way I'm going to be able to start over. " Patient reported his sleep and appetite were stable. He denied urges or cravings to use substances, however expressed low motivation to stop using alcohol and other drugs. His insight and judgement over drug use remained poor; however his insight and judgment towards his legal situation appeared improved. His thought process was linear and goal-directed. Thought content was appropriate. Cognition was grossly intact. There was no evidence of paranoia or rachel delusions. He reported tolerating all medications well and denied untoward medication effects. He expressed motivation to follow-up at [facility] in [place], [place] for a walk-in IOP intake. Patient verbalized a safety plan to call 911/go to nearest emergency department if he should feel unsafe or endorse suicidal thoughts. He reported feeling safe and ready for discharge. P: 1. Discharge today into the care of his brother who will transport him directly from hospital to [facility]. 2. F/u at [facility] in [place], [place] on 01/29/17 betweem 12:30 - 4:30PM. 3. Discharge prescriptions for Zyprexa, Lexapro, and Nicoderm CQ patch were e- prescribed to [facility] in [place]. Patient reported he had not picked up discharge prescriptions from 01/17/17. [facility] was called and verified that prescriptions for Propranolol and Prazosin were never picked up. [facility] reported they never received a prescription for Lexapro on 01/17/17. Patient verbalized understanding to peanut picker all prescriptions. 4. In the event of an emergency, call 911/go to nearest emergency department. Patient verbalized understanding of instructions.
--- NOTE | 2017-01-24 08:00 | DISCHARGE SUMMARY REPORT-PSYCH ---
Visit Information Visit Dates/Diagnosis' Admission Date: 01/21/17 Discharge Date: 01/24/17 Reason for Admission: Gabapentin overdose with intent to get high without suicidal intent. Psy Discharge Primary Diag: MDD, recurrent, severe Psy Discharge Secondary Diag: PTSD; Antisocial traits; Alcohol use disorder, severe; Cocaine use disorder, moderate; Opiate use disorder, in partial sustained remission; hx of concussions;asthma; hx of pulmonary embolism; pancreatitis; fatty liver. Hospital Course Significant Lab Findings: Lab WBC 13.0 /CUMM H 01/21/17 0358 Serum Alcohol 192.0 MG/DL 01/21/17 0358 Urine Cocaine Screen 170 NG/ML 01/21/17 0620 Course Complications: None. Consultations: The patient was seen for admission history and physical by hog scalder Dr. Adilene Goins. Please see MD note for additional information. Allergies: Coded Allergies: NO KNOWN ALLERGIES (08/28/16) Hospital Course/TX Response: The patient was monitored on the unit for safety, mood, suicidal ideation, and alcohol withdrawal. He was monitored on [facility] protocol and showed no signs or symptoms of alcohol withdrawal. He participated minimally in multimodal treatments on the unit. He was continued on Lexapro 20mg every morning for anxiety and depression, Propranolol 20mg four times daily for anxiety, and Prazosin 1mg at bedtime for nightmares. Gabapentin was discontinued. Zyprexa 2.5mg twice daily was started off-label for anxiety with the patient's permission and was increased to 5mg twice daily. The patient reported tolerating all medications well and denied untoward medication effects. During the hospital course, the patient's mood and affect improved. He consistently denied suicidal ideation, plans or intent. He remained focused on clearing an active warrant for a past DUI. He had missed his court date last week and was notified by [place] court that if he did not present to court on he would face group home time. This was confirmed with [place] court by [facility] WORD PROCESSING SPECIALIST. The patient would not allow CPS treatment team to have contact with his family regarding his inpatient level of care. Patient was in favor of dischrging directly from hospital to [place] and was provided transportation by his brother directly to court. Patient was also in favor of aftercare plan to follow up at [facility] in [place], [place]. On the date of discharge, 01/24/17, the patient presented alert and oriented to person, place, time and situation. Affect was calm and full-range. Mood was "fine." Eye contact was appropriate. Speech was normal in rate, tone and volume. He had no complaints. He denied feeling hopeless, helpless, worthless, and guilty. He reported depression of 4/10 (10 being the worst) and anxiety of 6/10 (10 being the worst) secondary to scheduled court appearance today. He denied passive and active suicidal ideation, plans and intent. He denied homicidal ideation. He reported his "mother" as a protective factor. He stated and also believed he will not harm himself or others. He expressed motivation to go directly to court this morning from hospital via transportation from his brother. He verbalized the legal consequence of not appearing in court today such as group home time. Patient was goal oriented to attend court as he wants to clear current active warrant. Patient was future oriented to clear warrant and stated, "I need to clear this issue, whether it's just a court appearance or group home, it's the only way I'm going to be able to start over." Patient reported his sleep and appetite were stable. He denied urges or cravings to use substances, however expressed low motivation to stop using alcohol and other drugs. His insight and judgement over drug use remained poor; however his insight and judgment towards his legal situation appeared improved. His thought process was linear and goal-directed. Thought content was appropriate. Cognition was grossly intact. There was no evidence of paranoia or rachel delusions. He reported tolerating all medications well and denied untoward medication effects. He expressed motivation to follow-up at [facility] in [place], [place] for a walk-in IOP intake. Patient verbalized a safety plan to call 911/go to nearest emergency department if he should feel unsafe or endorse suicidal thoughts. He reported feeling safe and ready for discharge. Patient's discharge was reviewed with CPS treatment team, including nursing staff, myself, Nereida Marino LCSW, and Dr. Mendenhall. It was a treatment team decision that the patient was psychiatrically cleared for discharge. Discharge HBIPS - Tobacco Use Treatment Offered Post DC Medications Offered: Script Given-See Med List Post DC Tobacco Treatment Plan: [facility] Kulkarni [facility] Pgm Program Appt Date: 01/31/17 Program Appt Time: 1600 - EtOH/Drug Use D/O Treatment Offered Post DC Medications Offered: Ref Med EtOH/Drug Use D/O Post DC EtOH/SubAbuse TX Plan: Other SubAbuse/Dual Pgm Program Appt Date: 01/29/17 Program Appt Time: 1230 Metabolic Screening - Screen if on a Neuroleptic Medication - Metabolic screening should include: - Blood Pressure, BMI, Glucose or Hgb A1c, & a - Lipid profile from within the past 365 days. Discharge Instructions General Discharge Information Discharge Medications: Discharge Medications- (Dose, route, freq, indication): HOME MEDICATION LIST START taking these NEW Home Medications: Nicotine (Nicotine Dose: On the skin, DAILY @8 AM Qty: 14 Sent to Patch) 21 MG/24 HOUR 21 Milligram for smoking cessation Refills: 0 Pharm 1 PATCH.TD24 Apply 1 patch topically every morning to upper arm and remove before bedtime. Olanzapine Dose: ORAL, 0800,2200 for mood Qty: 28 Sent to (Olanzapine) 5 MG 5 Milligram stabilization/anxiety Refills: 0 Pharm 1 TABLET Take 1 tablet by mouth twice daily. Escitalopram Oxalate Dose: ORAL, DAILY for Qty: 14 Sent to (Lexapro) 20 MG 1 Tablet depression/anxiety Refills: 0 Pharm 1 TABLET Take 1 tablet by mouth every morning. CONTINUE taking these Home Medications: Nicotine (Nicorelief) 2 Dose: ORAL, EVERY 2 HOURS MG GUM 2 Milligram NEEDED as needed for smoking cessation Prazosin Hydrochloride Dose: ORAL, AT BEDTIME for (Minipress) 1 MG CAPSULE 1 Milligram NIGHTMARES Last Taken: 01/16/17 Time: 2200 Propranolol HCl Dose: ORAL, (Propranolol HCl) 20 MG 20 Milligram 0800,1300,1700,2200 for TABLET ANXIETY Last Taken: 01/17/17 Time: 1300 Albuterol Sulfate Dose: NASAL, EVERY 6 HOURS (Ventolin Hfa) 90 MCG 2 Puff NEEDED for ASTHMA HFA.AER.AD STOP taking these DISCONTINUED Home Medications: Gabapentin (Gabapentin) 300 MG Dose: ORAL, 0800,1300,2200 for ANXIETY CAPSULE 900 Milligram Reason Stopped: Per Doctor Decision 1: [id number], [address] [place], [place] [id number] Your Preferred Pharmacy [id number] [address] [facility] [address] Multiple Neuroleptics: ([X]) Not Applicable OR Document below three failed attempts at monotherapy, or a plan to taper to monotherapy, or augmentation of Clozapine. () Patient's Diet: Regular. Patient's Activity: No restrictions. DC Disposition: To return to mother and her home. Recommendations: Patient was advised to please take his medications as prescribed. He was strongly advised to abstain from all substances, to attend daily AA/NA meetings and obtain a sponsor for support in sobriety. He was advised to follow-up with outpatient referrals (see in below section). Patient was advised to call 911/go to nearest emergency department in the event of an emergency. Patient verbalized understanding of all instructions. Referred To: ROXI Dual [facility] [address] [place] [address] [phone])[phone] *Walk-in Evaluations are done Mondays from 12:30-4:30PM and 1:30-4:30 PM [facility] Smoking Cessation Program [address] [place] [id number] [phone] *Walk in to group on 01/31/17 at 4PM. Copies To: Smoking Cessation Program; ROXI
[2017-01-24 08:38] VITALS: BP 129/78
--- NOTE | 2017-01-24 08:46 | SOCIAL WORKER PROG NOTE PSYCH ---
Social Work Progress Note Progress Note Tino is ready to discharge today and head to [facility] court. He feels anxious , but knows that it is best to get it over with. Talked about the relief he will feel if he doesn't have this burden any further, wondering what is going to happen at court. Says he Brother is picking him up this morning. He can follow up at [facility] in [place]. They have walk in evaluations on Mondays 12:30-3:30 and 1:30-4:30. Denies any SI today.
[2017-01-24] MEDS ORDERED: LEXAPRO10 M1 PO (09:07)
[2017-01-24] MEDS ORDERED: LEXAPRO20 M1 PO (17:25)
== END 2017-01-24 10:59 | DRG 751 ==
LOC: ERH 03:42 → CP SOUTH 10:34 → ERHI 10:34 → CP SOUTH 11:58 → CMPBEDREQ 12:00 → CP SOUTH 12:04
PROVIDERS: Emergency Medicine; ADMIT Psychiatry & Neurology Addiction Medicine
DX: F33.2 Major depressive disorder, recurrent severe without psychotic features (principal); K85.90 Acute pancreatitis without necrosis or infection, unspecified; K76.0 Fatty (change of) liver, not elsewhere classified; F43.10 Post-traumatic stress disorder, unspecified; F10.20 Alcohol dependence, uncomplicated; F14.90 Cocaine use, unspecified, uncomplicated; F11.10 Opioid abuse, uncomplicated; J45.909 Unspecified asthma, uncomplicated
CPT/HCPCS: 80307; 93005; 93010; G0480; J3101

== ENCOUNTER 2017-02-21 04:08 | Emergency (ER) | payer OTHER ==
[~2017-02-21] VITALS: Ht 180.3 cm; Wt 122.5 kg
[~2017-02-21 04:08] MED LIST changes: +LEXAPRO20 M1 PO; +NICOTINE PATCH1 EAC3 TOP; +OLANZAPINE5 M2 PO; +VENTOLIN HFA18 GM NS
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
[2017-02-21 04:32] LABS: ABSOLUTE BASOPHIL COUNT 0.1 /CUMM (0.0-0.2); ABSOLUTE EOSINOPHIL COUNT 0.2 /CUMM (0.0-0.7); ABSOLUTE GRANULOCYTE CT 6.5 /CUMM (1.4-6.5); ABSOLUTE LYMPH COUNT 4.1 /CUMM (1.2-3.4); ABSOLUTE MONOCYTE COUNT 0.4 /CUMM (0.10-0.60); BASOPHIL % 1.2 % (0.0-2.0); EOSINOPHIL % 1.8 % (0-5); GRANULOCYTE % 57.6 % (42.2-75.2); HEMATOCRIT 44.9 % (42-52); MEAN CORPUSCULAR HGB CONC 33.3 G/DL (33.0-37.0); MEAN CORPUSCULAR VOLUME 87.1 FL (80.0-94.0); MEAN PLATELET VOLUME 7.2 FL (7.4-10.4); PLATELET COUNT 256 /CUMM (130-400); RBC DISTRIBUTION WIDTH 14.3 % (11.5-14.5); RED BLOOD CELL CT 5.16 /CUMM (4.70-6.10); WHITE BLOOD CELL COUNT 11.4 /CUMM (4.8-10.8)
[2017-02-21] MEDS ORDERED: GABAPENTIN300 M2 PO (04:37)
--- NOTE | 2017-02-21 05:37 | RADIOLOGY REPORT ---
EXAMINATION: XR PORTABLE CHEST CLINICAL INFORMATION: Chest pain COMPARISON: 10/20/2016 TECHNIQUE: Portable frontal view of the chest was obtained. FINDINGS: The lungs are well expanded. There is no focal consolidation, edema, or effusion. No pneumothorax. The cardiomediastinal silhouette is within normal limits. No acute osseous abnormality. IMPRESSION: Clear lungs.
[2017-02-21 13:01] VITALS: BP 150/64
[2017-02-21] MEDS ORDERED: CHLORDIAZEPOXID25 M3 PO (13:51)
== END 2017-02-21 14:26 ==
LOC: ERH 04:08
PROVIDERS: Emergency Medicine
DX: F10.239 Alcohol dependence with withdrawal, unspecified (principal); R07.89 Other chest pain; F14.10 Cocaine abuse, uncomplicated
CPT/HCPCS: 80307; 93005; 93010; G0480

== ENCOUNTER 2017-02-22 18:48 | Observation (INO) | payer OTHER ==
[~2017-02-22] VITALS: Ht 180.3 cm; Wt 122.5 kg
[~2017-02-22 18:48] MED LIST changes: +CHLORDIAZEPOXID25 M3 PO
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
--- NOTE | 2017-02-22 19:10 | NUR ---
DR WONG AT BEDSIDE FOR EVAL
--- NOTE | 2017-02-22 19:25 | NUR ---
URINE TRIO SENT TO LAB
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
--- NOTE | 2017-02-22 19:32 | NUR ---
LABS DRAWN AND SENT (SST,LAV)
--- NOTE | 2017-02-22 19:41 | NUR ---
SECURITY AT BEDSIDE FOR WANDING
[2017-02-22 19:45] LABS: ABSOLUTE BASOPHIL COUNT 0.2 /CUMM (0.0-0.2); ABSOLUTE EOSINOPHIL COUNT 0.4 /CUMM (0.0-0.7); ABSOLUTE GRANULOCYTE CT 7.6 /CUMM (1.4-6.5); ABSOLUTE LYMPH COUNT 4.8 /CUMM (1.2-3.4); ABSOLUTE MONOCYTE COUNT 0.7 /CUMM (0.10-0.60); BASOPHIL % 1.5 % (0.0-2.0); EOSINOPHIL % 2.7 % (0-5); GRANULOCYTE % 55.3 % (42.2-75.2); HEMATOCRIT 45.2 % (42-52); MEAN CORPUSCULAR HGB 29.6 PG (27.0-31.0); MEAN CORPUSCULAR HGB CONC 34.1 G/DL (33.0-37.0); MEAN CORPUSCULAR VOLUME 86.9 FL (80.0-94.0); MEAN PLATELET VOLUME 7.2 FL (7.4-10.4); PLATELET COUNT 286 /CUMM (130-400); RBC DISTRIBUTION WIDTH 14.5 % (11.5-14.5); WHITE BLOOD CELL COUNT 13.7 /CUMM (4.8-10.8)
--- NOTE | 2017-02-22 19:50 | NUR ---
PT CHANGED INTO HOSPITAL GOWN
--- NOTE | 2017-02-22 20:10 | NUR ---
PT'S 02 SATS IN LOW 90'S DIPPING INTO HIGH 80'S ON 2LPM BY NC. INCREASED TO 4 LPM THEN 6 LPM. CHANGED TO VENTI MASK AT 40%, O2 SAT SOHAM TO 95-96%.
--- NOTE | 2017-02-22 21:01 | NUR ---
RESPIRATORY THERAPIST AT BEDSIDE
--- NOTE | 2017-02-22 21:58 | NUR ---
XRAY AT BEDSIDE FOR PORTABLE CHEST XRAY
--- NOTE | 2017-02-22 22:19 | RADIOLOGY REPORT ---
EXAMINATION: XR PORTABLE CHEST CLINICAL INFORMATION: Overdose. Hypoxia. Aspiration. COMPARISON: Chest x-ray 02/21/2017 TECHNIQUE: Portable frontal view of the chest was obtained. 9:55 PM FINDINGS: Lung volume low. Expiratory chest causing crowding of the bronchovascular markings. No focal dense consolidation. No pleural effusion. IMPRESSION: Expiratory chest radiograph. No acute change. Repeat with with good inspiration when patient couldn't tolerate would be helpful
--- NOTE | 2017-02-22 22:57 | NUR ---
PT MEDICATED WITH 2.5ML ROMAZICON IV OVER 30 SECONDS. NO SIGNIFICANT CHANGE IN VITALS AFTER MEDICATION GIVEN. PT WAS EASILY AROUSABLE TO VOICE AFTER MED. SITTER AT DOOR FOR SAFETY.
--- NOTE | 2017-02-22 23:50 | NUR ---
MOVED INTO RM 12 REMAINS ON NRB W/NASAL TRUMPET IN PLACE. 02 SAT = 97 CLOTHING BAG PLACED IN CLOSET BY SECURITY
--- NOTE | 2017-02-23 00:44 | NUR ---
O2 SAT 95% ON 50% VM. SITTER REMAINS IN ATTENDANCE. GOOD RESP EFFORT
--- NOTE | 2017-02-23 03:42 | NUR ---
PT CONTINUES TO SLEEP. NOW LYING ON SIDE. O2 SAT 100% ON 50% VM. SITTER REMAINS IN ATTENDANCE
--- NOTE | 2017-02-23 05:14 | NUR ---
PT CONTINUES TO SLEEP. 02 SAT 98-99% ON 50% VM. SITTER AT DOORWAY
--- NOTE | 2017-02-23 05:31 | NUR ---
PT USED URINAL AT BEDSIDE. VOIDED 1100 CC'S
--- NOTE | 2017-02-23 07:02 | NUR ---
PT SNORING SITTER REMAINS AT DOOR
--- NOTE | 2017-02-23 07:24 | NUR ---
PT EATING BREAKFAST AT THIS TIME SITTER REMAINS AT DOOR
--- NOTE | 2017-02-23 08:06 | NUR ---
SW attempted to evaluate the patient, however he was too lethargic and not appropriate to interview at this time. Sw will attempt to evaluate later this morning.
--- NOTE | 2017-02-23 09:10 | NUR ---
PT MOVED TO ROOM 15 HAD 2 MEALS PRIOR TO MOVE
--- NOTE | 2017-02-23 11:20 | NUR ---
PT GIVEN FINGER FOOD TRAY
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
[2017-02-23 14:06] VITALS: BP 126/57
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
--- NOTE | 2017-02-23 14:25 | NUR ---
REPORT GIVEN TO MICHAEL DE LA GARZAREMOTELY OPERATED VEHICLE NOTIFIED
== END 2017-02-23 14:45 ==
LOC: ERH 18:48 → ERHI 02-23 02:40 → EDBEDREQ 02-23 08:21 → ERHI 02-23 14:45 → CP SOUTH 02-24 13:14 → ERHI 02-24 13:14 → CP SOUTH 02-24 13:35
PROVIDERS: ADMIT Emergency Medicine
DX: T44.7X Poisoning by, adverse effect of and underdosing of beta-adrenoreceptor antagonists (principal); X78.9XXA Intentional self-harm by unspecified sharp object, initial encounter; E66.01 Morbid (severe) obesity due to excess calories; F10.10 Alcohol abuse, uncomplicated; F19.10 Other psychoactive substance abuse, uncomplicated; I10 Essential (primary) hypertension; F32.9 Major depressive disorder, single episode, unspecified; F41.9 Anxiety disorder, unspecified; F43.10 Post-traumatic stress disorder, unspecified; J45.909 Unspecified asthma, uncomplicated
CPT/HCPCS: 1342; 80307; 93005; 93010; 96374; G0480

== ENCOUNTER 2017-02-23 14:25 | Inpatient (IN) | payer OTHER ==
[~2017-02-23] VITALS: Ht 180.3 cm; Wt 123.4 kg
[2017-02-23 15:24] VITALS: BP 98/73
--- NOTE | 2017-02-23 16:06 | NUR ---
ADMISSION NOTE PATIENT REPORTS SI IN CONTEXT OF HOMELESSNESS AND SUBSTANCE ABUSE. PATIENT STATES HE HAS NO ONE SUPPORTS. PATIENT WITH MULTIPLE SUPERFICIAL SELF INFLICTED WOUNDS TO ARMS, ABDOMEN. VSS. CIWA FLAT. PATIENT STATES HE WILL NOT SELF HARM IN THIS SETTING AND WILL NOTIFY STAFF IF SI THOUGHTS RE EMERGE.
[2017-02-23 20:05] VITALS: BP 145/71
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
--- NOTE | 2017-02-23 21:53 | NUR ---
PT IS OFTEN OUT OF MILIEU, ISOLATIVE AND WITHDRAWN. WHEN APPEARING IN [facility] PT HAS LIMITED INTERACTION WITH OTHERS. MOOD IS STABLE, AFFECT IS EUTHYMIC TO FULL RANGE, APPEARS LETHARGIC - SLEEPING FOR LONG PERIODS OF THE EVENING, COMMUNICATION IS ORGANIZED AND APPEARS NORMAL IN ALL RESPECTS, AND APPETITE IS NORMAL. PT DENIES SI AT THIS TIME.
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
--- NOTE | 2017-02-23 23:11 | Admission Certification ---
Admission Certification Certification Statement - As attending physician, I certify that at the time of - admission, based on clinical presentation, severity of - symptoms, need for further diagnostic testing and - therapeutic interventions, and risk of adverse outcomes - without in-hospital treatment, in my clinical assessment, - this patient requires an acute hospital stay for a minimum - of two nights or longer. I have also considered psychsocial - factors such as support system, advanced age, financial - issues, cognitive issues, and failed out-patient treatments, - past re-admission history, safety of patient, and lack of - compliance as applicable. Specific rationale supporting this admission is: Drug overdose, depression.
[2017-02-23 23:53] VITALS: BP 120/62
[2017-02-24] VITALS (13 sets, daily range): BP systolic 102–145; BP diastolic 51–94
--- NOTE | 2017-02-24 06:33 | NUR ---
PATIENT SLEPT ALL NIGHT IN BETWEEN CIWA ASSESSMENTS WHICH WERE ALL WITHIN NORMAL LIMITS.
--- NOTE | 2017-02-24 14:07 | NUR ---
PT NOT VISIBLE MUCH IN THE MILIEU TODAY. HE ATTENDED NO GROUPS TODAY, AND HAS MINIMAL INTERACTIONS WITH HIS PEERS. PT HAS BEEN COMPLIANT ABOUT GETTING HIS VITALS DONE, AND COMING OUT TO EAT FOR MEALS. PT DENIES THOUGHTS OF HURTING HIMSELF WHEN ASKED.
--- NOTE | 2017-02-24 14:25 | CP SOUTH PROGRESS NOTE PSYCH ---
Psych (Inpt) Progress Note Progress Note Include the following elements, when applicable: Involvement in the active treatment of the patient with behavioral observations of the patient and the patient's response to the treatment. Review of the ongoing treatment process in the context of the treatment plan. Indication of how multi-disciplinary staff members are carrying out the treatment plan. Plans for future interventions and recommendations for revision of the treatment plan. Liaison with other physicians/providers. Progress Note: Pt notes that he did not sleep well overnight. As a result, very tired today. Denies SI or HI. Denies AVHs (only occur during acute wd, per pt). Current Medications Sig/Heather Start time Last Medication Dose Route Stop Time Status Admin Albuterol Sulfate 2 PUF Q6H PRN 02/23 1615 AC INH Aripiprazole 20 MG 02/24 AC PO Aripiprazole 15 MG 02/23 DC 02/23 PO 02/23 2201 2349 Aripiprazole 5 MG Q6P PRN 02/23 2015 AC PO Escitalopram Oxalate 10 MG 1000 02/24 1000 DC PO Escitalopram Oxalate 20 MG 1000 02/24 1000 AC 02/24 PO 0808 Folic Acid 1 MG 0802/24 0800 AC 02/24 PO 0808 Gabapentin 300 MG 0800,1400,0 02/23 2200 AC 02/24 PO 1346 Gabapentin 300 MG Q4H PRN 02/23 1615 AC PO Lorazepam 0.5 MG 1200 02/27 1200 AC PO 02/27 1201 Lorazepam 0.5 MG 1200 02/26 1200 CAN PO 02/26 1201 Lorazepam 0.5 MG 0800,02/26 0800 AC PO 02/26 2001 Lorazepam 0.5 MG 0800,02/25 0800 CAN PO 02/25 2001 Lorazepam 0.5 MG 0800,1300,1700,2200 02/25 0800 AC PO 02/25 2201 Lorazepam 0.5 MG 0800,1500,2200 02/24 0800 CAN PO 02/24 2201 Lorazepam 1 MG 0800,1400,02/24 0800 AC 02/24 PO 02/24 2001 1346 Lorazepam 1 MG 02/23 DC PO 02/23 2201 Lorazepam 2 MG 02/23 DC 02/23 PO 02/23 2201 2357 Lorazepam 1 MG ONCE ONE 02/23 1730 DC 02/23 PO 02/23 1731 1954 Lorazepam 1 MG Q4H PRN 02/23 1545 AC PO Lorazepam 1.5 MG Q4H PRN 02/23 1545 AC PO Melatonin 5 MG AT BEDTIME 02/24 2200 UNVr PO Multivitamins 1 TAB 02/24 0800 AC 02/24 PO 0808 Nicotine 21 MG 02/23 1545 AC 02/24 TOP 0808 Olanzapine 5 MG 02/23 220 CAN PO Olanzapine 2.5 MG Q4H PRN 02/23 1615 DC PO Patient Medication 1 UNIT ONE NR 02/23 1615 DC Teaching ED 02/23 1630 Prazosin HCl 2 MG AT BEDTIME 02/23 2200 AC 02/23 PO 2356 Propranolol HCl 20 MG 0800,1400,02/23 AC 02/24 PO 1346 Thiamine HCl 100 MG 02/24 0800 AC 02/24 PO 0808 Trazodone HCl 50 MG AT BEDTIME 02/24 2200 UNVr PO Trazodone HCl 50 MG AT BEDTIME NEED.. 02/24 1430 AC PO Vital Signs Date Time Temp Pulse Resp B/P B/P Pulse O2 O2 Flow FiO2 Mean Ox Delivery Rate 02/24 1412 95 145/94 02/24 1346 97.7 83 139/78 02/24 1227 83 139/78 02/24 1226 83 139/78 02/24 1005 69 138/51 02/24 0812 97.7 92 140/79 02/24 0808 92 140/79 02/24 0805 97.7 92 140/79 02/24 0523 68 18 118/60 02/24 0221 68 16 102/60 02/23 2356 64 18 120/62 02/23 2353 96.0 64 120/62 02/23 2034 97.3 87 16 145/71 02/23 2005 97.1 87 145/71 02/23 1524 98.1 92 98/73 MSE Appears as stated age. Cooperative behavior, good, appropriate eye contact. Nl speech rate and prosody. No psychomotor retardation or agitation. Mood tired Affect slightly irritable, depressed, constricted, appropriate, non-liable. Linear and goal directed thought process. Denies SI or HI. Does not appear to be responding to internal stimuli. Denies AVHs, paranoia, or delusions. I/J: limited A/P: Pt with ADD, PTSD, and AUD with ongoing wd though tolerating. - Continue current wd protocol - Added trazodone and melatonin for sleep - Encourage groups
--- NOTE | 2017-02-24 18:28 | NUR ---
PT HAS BEEN ISOATLIVE IN ROOM FOR MOST OF THE SHIFT SLEEPING. PT DID GET UP FOR VITALS AND DINNER. PT STATES THAT HE FEELS "THE DETOX" AND IS "SWEATING A LOT" VITALS WERE STABLE. PT MOOD IS STABLE WITH A FLAT AFFECT. PT DENIES SI THOUGHTS. PT IS NOT SCORING ON CIWA ASSESSMENT.
[2017-02-25] VITALS (8 sets, daily range): BP systolic 109–138; BP diastolic 64–76
--- NOTE | 2017-02-25 05:12 | NUR ---
PATIENT SLEPT ALL NIGHT.
[2017-02-25 08:12] LABS: ABSOLUTE BASOPHIL COUNT 0.1 /CUMM (0.0-0.2); ABSOLUTE EOSINOPHIL COUNT 0.3 /CUMM (0.0-0.7); ABSOLUTE GRANULOCYTE CT 4.7 /CUMM (1.4-6.5); ABSOLUTE LYMPH COUNT 3.2 /CUMM (1.2-3.4); ABSOLUTE MONOCYTE COUNT 0.6 /CUMM (0.10-0.60); BASOPHIL % 0.7 % (0.0-2.0); EOSINOPHIL % 3.7 % (0-5); HEMATOCRIT 45.7 % (42-52); MEAN CORPUSCULAR HGB 29.5 PG (27.0-31.0); MEAN CORPUSCULAR HGB CONC 33.7 G/DL (33.0-37.0); MEAN CORPUSCULAR VOLUME 87.7 FL (80.0-94.0); MEAN PLATELET VOLUME 7.7 FL (7.4-10.4); PLATELET COUNT 231 /CUMM (130-400); RBC DISTRIBUTION WIDTH 14.1 % (11.5-14.5); RED BLOOD CELL CT 5.21 /CUMM (4.70-6.10); WHITE BLOOD CELL COUNT 8.8 /CUMM (4.8-10.8)
--- NOTE | 2017-02-25 12:01 | CP SOUTH PROGRESS NOTE PSYCH ---
Psych (Inpt) Progress Note Progress Note Include the following elements, when applicable: Involvement in the active treatment of the patient with behavioral observations of the patient and the patient's response to the treatment. Review of the ongoing treatment process in the context of the treatment plan. Indication of how multi-disciplinary staff members are carrying out the treatment plan. Plans for future interventions and recommendations for revision of the treatment plan. Liaison with other physicians/providers. Progress Note: Pt notes slept much better overnight with trazodone and melatonin. Notes "OK" mood. Denies SI or HI. Wants higher dose of abilify. Current Medications Sig/Heather Start time Last Medication Dose Route Stop Time Status Admin Albuterol Sulfate 2 PUF Q6H PRN 02/23 1615 AC INH Aripiprazole 20 MG 02/24 AC 02/24 PO 2215 Aripiprazole 5 MG Q6P PRN 02/23 2015 AC PO Escitalopram Oxalate 20 MG 1000 02/24 1000 AC 02/25 PO 0758 Folic Acid 1 MG 02/24 0800 AC 02/25 PO 0758 Gabapentin 300 MG 0800,1400,2200 02/23 2200 AC 02/25 PO 0758 Gabapentin 300 MG Q4H PRN 02/23 1615 AC PO Lorazepam 0.5 MG 1200 02/27 1200 AC PO 02/27 1201 Lorazepam 0.5 MG 0800,02/26 0800 AC PO 02/26 2001 Lorazepam 0.5 MG 0800,1300,1700,2200 02/25 0800 AC 02/25 PO 02/25 2201 0759 Lorazepam 1 MG 0800,1400,02/24 0800 DC 02/24 PO 02/24 Lorazepam 1 MG Q4H PRN 02/23 1545 AC PO Lorazepam 1.5 MG Q4H PRN 02/23 1545 AC PO Melatonin 5 MG AT BEDTIME 02/24 2200 AC 02/24 PO 2215 Multivitamins 1 TAB 02/24 08 AC 02/25 PO 0758 Nicotine 21 MG 02/23 1545 AC 02/25 TOP 0758 Prazosin HCl 2 MG AT BEDTIME 02/23 2200 AC 02/24 PO 2215 Propranolol HCl 20 MG 0800,1400,02/23 PO 0758 Thiamine HCl 100 MG 02/24 0800 AC 02/25 PO 0758 Trazodone HCl 50 MG AT BEDTIME 02/24 2200 AC 02/24 PO 2215 Trazodone HCl 50 MG AT BEDTIME NEED.. 02/24 1430 AC PO Laboratory Tests 02/25 06 Hematology CBC w Diff NO MAN DIFF REQ WBC (4.8 - 10.8 /CUMM) 8.8 RBC (4.70 - 6.10 /CUMM) 5.21 Hgb (14.0 - 18.0 G/DL) 15.4 Hct (42 - 52 %) 45.7 MCV (80.0 - 94.0 FL) 87.7 MCH (27.0 - 31.0 PG) 29.5 RDW (11.5 - 14.5 %) 14.1 Plt Count (130 - 400 /CUMM) 231 MPV (7.4 - 10.4 FL) 7.7 Gran % (42.2 - 75.2 %) 53.0 Lymphocytes % (20.5 - 51.1 %) 36.3 Monocytes % (1.7 - 9.3 %) 6.3 Eosinophils % (0 - 5 %) 3.7 Basophils % (0.0 - 2.0 %) 0.7 Absolute Granulocytes (1.4 - 6.5 /CUMM) 4.7 Absolute Lymphocytes (1.2 - 3.4 /CUMM) 3.2 Absolute Monocytes (0.10 - 0.60 /CUMM) 0.6 Absolute Eosinophils (0.0 - 0.7 /CUMM) 0.3 Absolute Basophils (0.0 - 0.2 /CUMM) 0.1 PUBS MCHC (33.0 - 37.0 G/DL) 33.7 Vital Signs Date Time Temp Pulse Resp B/P B/P Pulse O2 O2 Flow FiO2 Mean Ox Delivery Rate 02/25 759 96.0 98 109/68 02/25 758 98 109/68 02/25 754 96.0 98 109/68 02/24 2215 87 140/93 02/24 2011 97.3 87 140/93 02/24 2005 97.3 87 140/93 02/24 2001 97 137/75 02/24 1817 97 137/75 02/24 1557 89 129/67 02/24 1552 89 129/67 02/24 1412 95 145/94 04/29 1346 97.7 83 139/78 02/24 1227 83 139/78 02/24 1226 83 MSE Appears as stated age, in bed. Cooperative behavior, good, appropriate eye contact. Nl speech rate and prosody. No psychomotor retardation or agitation. Mood OK" Affect less irritable, depressed, constricted, appropriate, non- liable. Linear and goal directed thought process. Denies SI or HI. Does not appear to be responding to internal stimuli. Denies AVHs, paranoia, or delusions. I/J: limited A/P: Pt with ADD, PTSD, and AUD with ongoing wd though tolerating. - Continue current wd protocol; decreased to q4WA given CIWAmax of 6 - Pt wants higher dose of abilify than 20mg, per home med list, was on zyprexa; unclear if on higher than rec dosage previously, will defer to primary team - Encourage groups
--- NOTE | 2017-02-25 13:36 | NUR ---
PT IS ISOALTIVE IN ROOM FOR MOST OF THE SHIFT. PT IS COMPLAINT AND COOPERATIVE WITH UNIT RULES. PT IS NOT ATTENDING GROUPS. PT IS NOT SCORING ON HIS CIWA ASSESSMENT. PT MOOD IS STABLE WITH A CONSTRICTED AFFECT. PT DENIES SI THOUGHTS.
--- NOTE | 2017-02-25 19:51 | NUR ---
DR. HERNANDEZ CALLED DUE TO PATIENT INCREASING ANXIETY AND UNRESOLVED MILD TO MODERATE AGITATION; HALDOL 5MG, BENADRYL 50MG, AND ATIVAN 0.5MG ORDERED X1; PATIENT STATED "I FEEL LIKE HITTING SOMETHING"; PATIENT CURRENTLY RESTING IN ROOM.
--- NOTE | 2017-02-25 22:45 | NUR ---
PT IN ROOM MOST OF THE TIME. NOT PRESENT IN MILIEU AND NO GROUP ATTENDANCE. PT EXPRESSED TO STAFF FEELINGS OF ANXIETY AND IRRITABLITY, BUT HAS NO PPLAN TO ACT OUT.
--- NOTE | 2017-02-26 05:46 | NUR ---
PATIENT SLEPT ALL NIGHT.
[2017-02-26 08:08] VITALS: BP 115/75
[2017-02-26 08:09] VITALS: BP 115/75
--- NOTE | 2017-02-26 12:09 | SOCIAL WORKER PROG NOTE PSYCH ---
Social Work Progress Note Progress Note Dr. Mendenhall and I met with Tino together. Tino reports that he slept good, no nightmares. Feeling anxious. Asked what happened with court when he left here a few weeks ago? He said he went and vacated the warrant, but he still has a new court date on 02/27. He would like to go to court tomorrow and is asking to leave today. Dr. Mendenhall is in agreement, as long as he has follow up services. Tino said he had an intake at [facility] scheduled for this past Sunday, but he missed it due to coming to the hospital. He would like another intake appt. at [facility]. He reports being able to stay at his Mom's intermittently. I asked about what was reported in the ER in terms of him hearing he was adopted and this being a stressor? He said his Mom told him this out of the blue the other day. He was asked if he had any thoughts about this prior? He said no and stated he looks like his Mom. At this point in time he doesn't feel preoccupied with this and stated the thought is in the back of his mind. He doesn't really know if it is true or not. Mom suffers from her own illness and could have just said this. Faxed clinical to [facility] and called Kamilah in intake and left a message. Talked to Kamilah who provided an intake appt. for 03/08 at 2pm. I also scheduled a bridge appt. for medications with Andrew Lopez APRN at [facility] for at 5:45pm. Tino will be planning to take the bus to his Mom's this afternoon.
--- NOTE | 2017-02-26 12:27 | CP SOUTH PROGRESS NOTE PSYCH ---
Psych (Inpt) Progress Note Progress Note Include the following elements, when applicable: Involvement in the active treatment of the patient with behavioral observations of the patient and the patient's response to the treatment. Review of the ongoing treatment process in the context of the treatment plan. Indication of how multi-disciplinary staff members are carrying out the treatment plan. Plans for future interventions and recommendations for revision of the treatment plan. Liaison with other physicians/providers. Progress Note: PSYCHIATRIST NOTE (DISCHARGE), 02/26/2017: I discussed this patient's progress to date, current mental status, treatment and discharge planning with staff team today in the daily morning ITTM and Nereida Marino LCSW, and I met with him together in individual session; in this meeting discharge for later this afternoon was discussed and decided. Later, I met with patient again myself in individual session prior to discharging him to intake at [facility], on 03/08/2017 at 2pm; he will have a "bridging" prescriber's appointment in our own OPS with Andrew Lopez APRN, on at 5:45pm; Mr. Lopez is quite familiar with patient from previous [facility] admissions. Patient reported feeling much better and ready for discharge to face his court date tomorrow, 02/27/2017; he is concerned that if he should miss his (many times rescheduled) date in court he would be much more likely to face skilled nursing time. Patient is currently full range/bright in affect and euthymic, without irritabiliy or dysphoria, showing no current evidence of suicidal or homicidal ideation, plans, intent or impulses and is well aware of his safety plan should he ever in future come to believe he is at acute risk of harming himself or others. Patient is happy to be back on the combination of Lexapro and Abilify; we also spoke about possible augmentation with Wellbutrin; patient noted that he had had a good experience with Wellbutrin ("it worked in the past "), and I said I would make note of this in his discharge summary from this admisison. I called into [facility] on [facility], [facility], on date of discharge , 02/26/2017: Lexapro, 20mg: i tab daily in AM (20mg/day); #14 with no refill (anti- depressant) Abilify, 20mg: i tab nightly at HS (20mg/night); #14 with no refill ( augmentation/stabilize mood) trazodone, 50mg: i tab nightly at HS (50mg/night); #14 with no refill (sleep induction) Neurontin, 600mg: i tab 3x/day PRN for discomfort/edginess/shakiness/anxiety prazosin, 2mg: i tab HS (for PTSD nightmares/better sleep); #14 with no refill Inderal, 20mg: i tab 3x/day PRN for restlessness/anxiety; #42 with no refill patient may also take melatonin, 5mg OTC HS PRN for help with sleep induction (patient was also encouraged to continue to use the 21mg nicotine patch OTC to help reduce cigarette/tobacco cravings and was given an appointment card for the next [place] [facility] scheduled for 02/28/2017 at 4pm, facilitated by Domenica Mancia LCSW)
--- NOTE | 2017-02-26 12:37 | NUR ---
PT IS [place]ED[place] FOR [place] [facility]. HE REPORTS HE HAS A COURT DATE TOMORROW AND WOULD LIKE TO MAKE IT. HE REPOERTS AND DEMONSTRATES IMPROVEMENT IN HIS MOOD AND AQBILITY TO FUNCTION. HE DENIES ANY THOUGHTS OF SUICIDE OR SELF HARM. HE EXPECTS TO FOLLOW UP WITH CARE. HE VERBALIZES A GOOD UNDERSTANDING OF HIS MED REGIME. PT IS GIVEN EDUCATION ON MANAGING HIS MOOD D/O AND ON PREVENTING SUICIDE
[2017-02-26 12:51] VITALS: BP 137/74
[2017-02-26 12:58] VITALS: BP 137/74
[2017-02-26] MEDS ORDERED: PRAZOSIN HCL2 M1 PO (13:19)
[2017-02-26] MEDS ORDERED: ABILIFY10 M1 PO (13:21)
[2017-02-26] MEDS ORDERED: LEXAPRO10 M1 PO (13:21)
[2017-02-26] MEDS ORDERED: TRAZODONE HCL50 M1 PO (13:21)
[2017-02-26] MEDS ORDERED: MELATONIN5 M7 PO (13:22)
[2017-02-26 13:25] VITALS: BP 137/74
[2017-02-26] MEDS ORDERED: GABAPENTIN600 M1 PO (13:26)
[2017-02-26] MEDS ORDERED: PROPRANOLOL HCL20 M1 PO (13:42)
--- NOTE | 2017-02-26 14:46 | DISCHARGE SUMMARY REPORT-PSYCH ---
Visit Information Visit Dates/Diagnosis' Admission Date: 02/23/17 Discharge Date: 02/26/17 Reason for Admission: "I guess I cut myself." Psy Discharge Primary Diag: Unspecified Depression R/O MDD, Recurrent R/O Unspecified bipolar spectrum disorder; MRE depressed Alcohol Use Disorder, severe Stimulant (cocaine) Use Disorder, severe PTSD, by history Psy Discharge Secondary Diag: Polysubstance Dependence (cocaine/alcohol/opioids/ benzos) Hospital Course Significant Lab Findings: KIMI = 156.0; urine for drugs of abuse--positive for cocaine (greater than 1, 000.00ng/ml); for complete details of all normal range laboratory data from this admission, see the electronic medical record Course Complications: none Consultations: patient was seen for an admission medical H&P by Peter Roberts M.D., and followed medically during this admission by the hospitalist staff/[facility] medical attending physicians Allergies: Coded Allergies: NO KNOWN ALLERGIES (08/28/16) Hospital Course/TX Response: (see also, all admission/initial assessments and daily M.D./EYEGLASS FRAMES INSPECTOR and NEUROSURGICAL NURSE progress notes from this admission in the electronic medical record) This was the 5th [facility] admission for this patient since 06/2016 and readmissions have been accelerating, with 3 occurring since only 12/2016; the trajectory of his life course has become a deepening downhill slope, with persistent abuse of alcohol and crack cocaine giving him a very poor prognosis if things do not change. 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 He has reported previous D.T.'s and alcohol withdrawal seizures. During his admission, karla had an uncomplicated detox from alcohol. Lexapro was restarted, as patient identified this SSRI as having been helpful in the past ("when I took it"); he was switched back to Abilify from Zyprexa for less sedation and possible better augmenting effect with Lexapro. Patient tolerated the above changes in/ adjustments to medication regimen well with no side effects to date of discharge. Patient advocated for early discharge so he could attend a court hearing he had been avoiding to the point that he may have to return to [facility] ( has been out since 2012). He reported feeling much better and ready for discharge on 02/26/2017; his hearing was to be the following morning. On date of discharge, patient was bright in affect, euthymia, without dysphoria or significant irritability, showing no current evidence of suicidal or homicidal ideation, plans, intent or impulses and well aware of his safety plan should he ever in future come to believe himself at acute risk of self-harm or of harming others. Discharge HBIPS - Tobacco Use Treatment Offered Post DC Medications Offered: Script Given-See Med List Post DC Tobacco Treatment Plan: [facility] Appt Date: 02/28/17 Program Appt Time: 1600 (Smoking Cessation Group at 4pm) - EtOH/Drug Use D/O Treatment Offered Post DC Medications Offered: Ref Med EtOH/Drug Use D/O Post DC EtOH/SubAbuse TX Plan: Other SubAbuse/Dual Pgm Program Appt Date: 03/08/17 ([facility]) Program Appt Time: 1400 (intake at 2pm) Metabolic Screening - Screen if on a Neuroleptic Medication - Metabolic screening should include: - Blood Pressure, BMI, Glucose or Hgb A1c, & a - Lipid profile from within the past 365 days. Metabolic Screening () Not Applicable, patient not on a neuroleptic. OR ([x]) Patient on a neuroleptic(s) . Enter below results for Glucose or Hemoglobin A1C, and lipid panel if obtained during the last 365 days. BMI: 37.000 Blood Pressure: 137/74 Laboratory Results (If applicable): [x] glucose = 90 (drawn 02/22/2017) glycos hgb A1c = 4.9 (drawn on 07/19/2016) cholesterol = 215 (all drawn on 07/19/2016) triglycerides = 213 HDL = 40 LDL = 133 Discharge Instructions General Discharge Information Discharge Medications: Discharge Medications (dose, route, frequency, indications): (see alsoEmili discharge progress note of 02/26/2017) I called into [facility], [place], [place] on date of discharge, 02/26/2017: Lexapro, 20mg: i tab daily in AM (20mg/day); #14 with no refill (anti- depressant) Abilify, 20mg: i tab nightly at HS (20mg/night); #14 with no refill (augment anti-depressant/stabilize mood) trazodone, 50mg: i tab nightly at HS (50mg/night); #14 with no refill (sleep induction) Neurontin, 600mg: i tab 3x/day PRN discomfort/shakiness/anxiety (max. 1,800mg daily); #42 with no refill prazosin, 2mg: i tab nightly at HS (2mg/night); #14 with no refill (reduce nightmares/improve sleep quality) Inderal, 20mg: i tab 3x/day PRN restlessness/anxiety (max. 60mg daily); #42 with no refill patient may also take melatonin, 5mg OTC PRN for help with sleep induction patient was also encouraged to continue to utilize nicotine patch, 21mg OTC to help reduce tobacco/cigarette cravings and was given an appointment card for the next scheduled [place] [facility] on 02/28/2017 at 4pm, facilitated by Domenica Mancia LCSW Multiple Neuroleptics: ([X]) Not Applicable OR Document below three failed attempts at monotherapy, or a plan to taper to monotherapy, or augmentation of Clozapine. () Patient's Diet: heart healthy Patient's Activity: without restrictions DC Disposition: to his mother's home Recommendations: I would recommend consideration of augmenting current Lexapro therapy with Wellbutrin. Following an interval of outpatient stabilization, I would advise attempting to slowly taper down current dose of Abilify. Also, a clinical trial of a mood stabilizer such as [place] or Depakote might be helpful if patient would take the medication reliably. Referred To: Patient was discharged to outpatient treatment with [facility], where he had an intake scheduled for 03/08/2017 at 2pm; he will also have a "bridging" appointment in [facility] with Cindy Ernst APRN, on 03/07/2017 at 5 :45pm. Patient was urged to regularly attend local A.A./N.A. meetings and acquire a sponsor at his earliest opportunity. He was given an appointment card for and advised to attend the next [place] [facility] meeting on 02/28/2017 at 4pm, facilitated by Domenica Mancia LCSW. Copies To: FER SIMMONS,ELPIDIO; CINDY ERNST APRN
== END 2017-02-26 15:14 | DRG 754 ==
LOC: CP SOUTH 14:46
PROVIDERS: Student in an Organized Health Care Education/Training Program; ADMIT Psychiatry & Neurology Addiction Medicine
DX: F32.9 Major depressive disorder, single episode, unspecified (principal); F10.20 Alcohol dependence, uncomplicated; F14.90 Cocaine use, unspecified, uncomplicated; F43.10 Post-traumatic stress disorder, unspecified
CPT/HCPCS: 36415; J0401; J3490

== ENCOUNTER 2017-04-22 07:14 | Emergency (ER) | payer OTHER ==
[~2017-04-22] VITALS: Ht 180.3 cm; Wt 117.9 kg
[~2017-04-22 07:14] MED LIST changes: +GABAPENTIN600 M1 PO; +MELATONIN5 M7 PO; +PRAZOSIN HCL2 M1 PO
[2017-04-22 08:16] LABS: ABSOLUTE EOSINOPHIL COUNT 0.1 /CUMM (0.0-0.7); ABSOLUTE MONOCYTE COUNT 0.2 /CUMM (0.10-0.60); MEAN CORPUSCULAR VOLUME 89.9 FL (80.0-94.0)
[2017-04-22 08:18] LABS: ABSOLUTE BASOPHIL COUNT 0 /CUMM (0.0-0.2); ABSOLUTE GRANULOCYTE CT 7.5 /CUMM (1.4-6.5); ABSOLUTE LYMPH COUNT 2.7 /CUMM (1.2-3.4); BASOPHIL % 0.4 % (0.0-2.0); EOSINOPHIL % 1.3 % (0-5); GRANULOCYTE % 70.7 % (42.2-75.2); MEAN CORPUSCULAR HGB CONC 33.3 G/DL (33.0-37.0); MEAN PLATELET VOLUME 7.5 FL (7.4-10.4); RBC DISTRIBUTION WIDTH 14.2 % (11.5-14.5)
[2017-04-22 08:27] LABS: HEMATOCRIT 37.8 % (42-52); PLATELET COUNT 207 /CUMM (130-400)
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
[2017-04-22 08:41] LABS: WHITE BLOOD CELL COUNT 10.7 /CUMM (4.8-10.8)
--- NOTE | 2017-04-22 09:39 | CT SCAN REPORT ---
EXAMINATION: CT HEAD WITHOUT CONTRAST CLINICAL INFORMATION: Fall. Evaluate for bleed. COMPARISON: Previous exams most recent September 2016. TECHNIQUE: Contiguous axial imaging was performed from the skull base to vertex without intravenous administration of contrast. Coronal reconstructions were obtained. DLP: 2184 mGy-cm, for combined CT of the head and cervical spine. FINDINGS: Exam is limited due to artifact from motion. There is no evidence of an extra-axial collection. There is no evidence of intra or extra-axial hemorrhage. The ventricles and extra-axial CSF spaces are appropriate. Soto-white matter differentiation is normal. No mass, mass effect or infarct is seen. There is round soft tissue seen in the right maxillary sinus, probably representing a polyp or mucous retention cyst. No skull fracture is seen. IMPRESSION: Limited exam due to artifact from motion. No acute intracranial pathology.
--- NOTE | 2017-04-22 09:40 | CT SCAN REPORT ---
EXAMINATION: CT CERVICAL SPINE WITHOUT CONTRAST CLINICAL INFORMATION: Fall. Evaluate for fracture. COMPARISON: Previous exam September 2016. TECHNIQUE: Axial images through the cervical spine without contrast. Sagittal and coronal reconstructions on the technologist workstation were performed. Patient dose 2184 mGy-cm combined CT of the head and cervical spine. DLP: 2184 mGy-cm. FINDINGS: Exam is limited due to motion. Bone alignment is normal. No fracture or dislocation is seen. Disc spaces are normal. Prevertebral soft tissues are normal. There is shotty cervical lymph adenopathy. Lung apices are clear. IMPRESSION: Limited exam due to artifact from motion. No fracture or dislocation seen.
--- NOTE | 2017-04-22 09:41 | CT SCAN REPORT ---
EXAMINATION: CT CHEST WITHOUT CONTRAST CLINICAL INFORMATION: Fall. Anemia. Evaluate for effusion. COMPARISON: Previous CT of the chest, abdomen and pelvis September 2016. TECHNIQUE: Multidetector volumetric CT imaging of the chest was done. Axial MIP volume rendering provided. Sagittal and coronal reformatted images were obtained. Exam is limited due to artifact from motion. DLP: 1771 mGy-cm for combined CT of the chest, abdomen and pelvis. FINDINGS: HYDRAULIC LIFT OPERATOR: Unremarkable. LUNGS: The lungs are clear with no evidence of inflammation or nodules. MEDIASTINUM: There are no enlarged mediastinal lymph nodes. The heart does not appear enlarged. There is no pericardial effusion. The thoracic aorta is normal in caliber. PLEURA: There is no pleural effusion. No pleural mass or thickening. There is no pneumothorax. AXILLA: There are small areas of air seen in the bilateral upper anterior chest wall and superior mediastinum. This may be related to intravenous access. No chest wall mass is seen. No axillary adenopathy is seen. OSSEOUS STRUCTURES: Evaluation of the bones is limited due to artifact from motion. There is an oblique lucency in the anterior proximal sternum seen on sagittal reconstructed images, image 84. No corresponding abnormality is seen on axial imaging and this may be due to motion artifact. Clinical correlation is recommended. IMPRESSION: Limited exam due to motion artifact. No pleural effusion or pneumothorax seen. No evidence for acute disease in the chest.
--- NOTE | 2017-04-22 09:41 | CT SCAN REPORT ---
EXAMINATION: CT ABDOMEN AND PELVIS WITHOUT CONTRAST CLINICAL INFORMATION: Fall. Anemia. Evaluate for acute intra-abdominal process. COMPARISON: Previous abdominal and pelvic CT scans most recent September 2016. TECHNIQUE: Multidetector volumetric imaging was performed from the superior aspect of the liver through the pubic symphysis. Sagittal and coronal reformatted images were obtained on the technologist's workstation. DLP: 1771 mGy-cm for combined CT of the chest, abdomen and pelvis. FINDINGS: LIVER, GALLBLADDER, AND BILIARY TREE: The liver is normal in size, shape, and attenuation. No focal hepatic lesion or biliary ductal dilatation is present. The gallbladder is unremarkable with no evidence of radiopaque gallstones, gallbladder wall thickening, or obvious pericholecystic inflammatory changes. PANCREAS: Unremarkable. SPLEEN: Unremarkable. ADRENAL GLANDS: Unremarkable. KIDNEYS AND URETERS: The kidneys are normal in size, shape, and attenuation. No hydronephrosis, hydroureter, or calculi seen. No perinephric stranding. BLADDER: There is a Adhikari catheter in the bladder. The bladder is decompressed. GASTROINTESTINAL TRACT: There is evidence of mild diverticulosis. Small and large bowel is otherwise normal. The appendix is normal. ABDOMINAL WALL: No significant hernia is appreciated. LYMPH NODES: There are no enlarged lymph nodes. No ascites is seen. No free intraperitoneal air is seen. VASCULAR: Unremarkable. PELVIC VISCERA: Unremarkable. OSSEOUS STRUCTURES: Unremarkable. IMPRESSION: Unremarkable exam.
[2017-04-22 12:59] VITALS: BP 102/68
== END 2017-04-22 13:24 | disposition short-term general hospital (02) ==
LOC: ERH 07:14
PROVIDERS: Emergency Medicine
DX: T50.992A Poisoning by other drugs, medicaments and biological substances, intentional self-harm, initial encounter (principal); F10.20 Alcohol dependence, uncomplicated
CPT/HCPCS: 74176; 80307; 93005; 93010; 96361; 96365; 96366; 96374; 96375; 96376; 99291; G0480; J1610; J1815; J7040